=== PATIENT | male | born 1980 | race Caucasian/White ===

== ENCOUNTER 2022-01-06 09:19 | Inpatient (IN) | payer OTHER ==
[2022-01-06] VITALS (15 sets, daily range): BP systolic 140–174; BP diastolic 76–104
[~2022-01-06] VITALS: Ht 185.4 cm; Wt 131.8 kg
[2022-01-06] MEDS ORDERED: MIDAZOLAM HCL/PF 2 MG/2 ML VIAL. ONE ×2 (09:21→09:32)
[2022-01-06] MEDS ORDERED: HEPARIN for IV BOLUS 10,000 UNIT/10 ML VIAL. ONE (09:21)
[2022-01-06] MEDS ORDERED: fentaNYL PF VIAL 100 MCG/2 ML VIAL ONE ×2 (09:21→09:32)
[2022-01-06] MEDS ORDERED: VERAPAMIL 5 MG/2 ML VIAL. ONE (09:21)
[2022-01-06] MEDS ORDERED: NITROGLYCERIN 200 MCG/2 ML SYRINGE FOR CATH/VASC LAB. ONE (09:21)
[2022-01-06] MEDS ORDERED: ONDANSETRON PF 4 MG/2 ML VIAL. ONE (09:23)
[2022-01-06] MEDS ORDERED: TIROFIBAN 12.5MG -0.9% NS 250 ML IV ONE (09:32)
[2022-01-06] MEDS ORDERED: ATROPINE 1 MG/10 ML DISP.SYRINGE. ONE (09:35)
[2022-01-06] MEDS ORDERED: IODIXANOL 320 MG/ML 100 ML VIAL. ONE (09:40)
[2022-01-06] MEDS ORDERED: PRASUGREL 10 MG TABLET. ONE (09:53)
[2022-01-06] MEDS ORDERED: TIROFIBAN 12.5MG -0.9% NS 250 ML IV PRN (10:00)
[2022-01-06] MEDS ORDERED: VERAPAMIL 5 MG/2 ML VIAL. IART ONE (10:00)
[2022-01-06] MEDS ORDERED: MIDAZOLAM HCL/PF 2 MG/2 ML VIAL. IV ONE (10:00)
[2022-01-06] MEDS ORDERED: fentaNYL PF VIAL 100 MCG/2 ML VIAL IV ONE (10:00)
[2022-01-06] MEDS ORDERED: HEPARIN for IV BOLUS 10,000 UNIT/10 ML VIAL. IV ONE (10:00)
[2022-01-06] MEDS ORDERED: NITROGLYCERIN 200 MCG/2 ML SYRINGE FOR CATH/VASC LAB. ICAR ONE (10:00)
[2022-01-06] MEDS ORDERED: NITROGLYCERIN 200 MCG/2 ML SYRINGE FOR CATH/VASC LAB. IART ONE (10:00)
[2022-01-06] MEDS ORDERED: IODIXANOL 320 MG/ML 100 ML VIAL. IART ONE (10:00)
[2022-01-06] MEDS ORDERED: LIDOCAINE 1% Multi-Dose 20 ML VIAL. INJ ONE (10:00)
[2022-01-06] MEDS ORDERED: PRASUGREL 10 MG TABLET. PO ONE (10:00)
[2022-01-06] MEDS ORDERED: HEPARIN for IV BOLUS 10,000 UNIT/10 ML VIAL. IART ONE (10:00)
--- NOTE | 2022-01-06 10:13 | CONS ---
DATE OF CONSULTATION: 01/06/2022 REASON FOR CONSULTATION: Acute inferior STEMI. HISTORY OF PRESENT ILLNESS: The patient is a 41-year-old male who presents to the hospital at [facility] with excruciating chest pain that started suddenly earlier this morning. Initial EKG demonstrated inferior ST elevation. He was emergently transferred to [facility] catheterization laboratory. The patient currently denies any dyspnea, but does have significant chest pain and left arm pain. After discussion of risks and benefits verbally, the patient was brought to the catheterization table. PAST MEDICAL HISTORY: None. 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 He denies any excessive alcohol use. He does smoke regularly. He occasionally uses marijuana. No other illicit drug use. REVIEW OF SYSTEMS: Negative for 10 out of 14 systems reviewed, unless otherwise mentioned above in HPI. FAMILY HISTORY: Noncontributory at this time. ALLERGIES: No known drug allergies. CURRENT CARDIOVASCULAR MEDICATIONS: None. PHYSICAL EXAMINATION: VITAL SIGNS: Afebrile, heart rate 57, blood pressure 173/91, pulse ox 97% on room air. GENERAL: He is alert and oriented, in no acute distress. HEAD AND NECK: Unremarkable. CARDIAC: Regular rhythm without murmurs, rubs or gallops. LUNGS: Clear to auscultation bilaterally. ABDOMEN: Obese, protuberant, nontender. EXTREMITIES: No clubbing, cyanosis, or edema with 2+ pulses. NEUROLOGIC: No focal deficits. MUSCULOSKELETAL: No trauma. DIAGNOSTIC STUDIES: Initial EKG demonstrates [address] elevations with reciprocal inferolateral changes. Laboratory studies are pending. Cardiac catheterization demonstrates subtotal occlusion of the right coronary artery and he underwent successful PCI with a 4.5 x 26 mm Resolute drug-eluting stent. IMPRESSION: 1. Inferior ST elevation myocardial infarction. 2. Tobacco abuse. RECOMMENDATIONS: At this present time, continue aspirin, prasugrel, and tirofiban. We will plan for monitoring in the ICU over the next 24-48 hours. Thank you for this consultation. CCT > 30 minutes exclusive of procedures. DAVID DR: Sepideh TID: [id number] EFRA
[2022-01-06] MEDS ORDERED: ONDANSETRON PF 4 MG/2 ML VIAL. IVP ONE (10:15)
[2022-01-06] MEDS ORDERED: CONTRAST GIVEN. MC PRN (10:30)
[2022-01-06] MEDS ORDERED: MORPHINE SULFATE 2 MG/ML INJ. IVP PRN (11:45)
[2022-01-06] MEDS ORDERED: ONDANSETRON PF 4 MG/2 ML VIAL. IVP PRN (11:45)
[2022-01-06] MEDS ORDERED: ZOLPIDEM 5 MG TABLET. PO PRN (11:45)
[2022-01-06] MEDS ORDERED: PROCHLORPERAZINE 10 MG/2 ML VIAL. IV PRN (11:45)
[2022-01-06] MEDS ORDERED: ACETAMINOPHEN 325 MG TABLET. PO PRN (11:45)
[2022-01-06] MEDS ORDERED: DOCUSATE SODIUM 100 MG CAPSULE. PO PRN (11:45)
[2022-01-06] MEDS ORDERED: oxyCODONE/APAP 5/325 1 TAB TABLET PO PRN (11:45)
[2022-01-06] MEDS ORDERED: diphenhydrAMINE 50 MG/ML VIAL IVP PRN (11:45)
[2022-01-06] MEDS ORDERED: LORazepam 0.5 MG TABLET PO PRN (11:45)
[2022-01-06] MEDS ORDERED: diphenhydrAMINE HCL 25 MG CAPSULE PO PRN ×2 (11:45)
[2022-01-06] MEDS ORDERED: SENNOSIDES 8.6 MG TABLET PO PRN (11:45)
[2022-01-06] MEDS ORDERED: MORPHINE SULFATE 2 MG/ML INJ. IV PRN (11:45)
[2022-01-06] MEDS ORDERED: DEXTROSE 50% 25 GM / 50ML DISP.SYRIN. IV PRN (11:45)
--- NOTE | 2022-01-06 11:54 | PDOC1 ---
History and Physical Date of Service: DOS: DATE: 01/06/22 TIME: 11:48 Chief Complaint: Chief Complain: Chest pain History of Present Illness: HPI: 41-year-old male with past medical history of tobacco use, hypertension comes in with chest pain that started 1 hour ago while he was driving. Patient states that last night tingling started in his left arm and also some tingling in his legs. Endorses lightheadedness and diaphoresis and some nausea. Patient does have a family history of [place] in his father. Patient does smoke 1-1/2 to 2 packs/day. Denies any alcohol or drugs. Denies fevers, abdominal pain, hematuria, bloody stools or syncope or palpitations. STEMI activation at [facility] showed sinus rhythm, heart rate [address] elevation Past Medical/Surgical History: PMH/PSH: Hypertension, GERD Allergies: Allergies: Coded Allergies: No Known Drug Allergies (Unverified , 01/06/22) Family History: Family History: [place] in the father Social History: Social History: Heavy smoker Current Medications: Current Medications Current Medications Fentanyl Citrate (Fentanyl 2ml Vial) 100 mcg STK-MED ONCE .ROUTE ; Start 01/06/22 at 09:21; Stop 01/06/22 at 09:21; Status DC Midazolam HCl (Versed) 2 mg STK-MED ONCE .ROUTE ; Start 01/06/22 at 09:21; Stop 01/06/22 at 09:21; Status DC Heparin Sodium (Porcine) (Heparin Sodium) 10,000 unit STK-MED ONCE .ROUTE ; Start 01/06/22 at 09:21; Stop 01/06/22 at 09:21; Status DC Verapamil HCl (Verapamil) 5 mg STK-MED ONCE .ROUTE ; Start 01/06/22 at 09:21; Stop 01/06/22 at 09:22; Status DC Nitroglycerin (Nitroglycerin) 200 mcg STK-MED ONCE .ROUTE ; Start 01/06/22 at 09:21; Stop 01/06/22 at 09:22; Status DC Ondansetron HCl (Zofran) 4 mg STK-MED ONCE .ROUTE ; Start 01/06/22 at 09:23; Stop 01/06/22 at 09:23; Status DC Fentanyl Citrate (Fentanyl 2ml Vial) 100 mcg STK-MED ONCE .ROUTE ; Start 01/06/22 at 09:32; Stop 01/06/22 at 09:33; Status DC Midazolam HCl (Versed) 2 mg STK-MED ONCE .ROUTE ; Start 01/06/22 at 09:32; Stop 01/06/22 at 09:33; Status DC Tirofiban/Sodium Chloride 250 ml @ As Directed STK-MED ONCE IV ; Start 01/06/22 at 09:32; Stop 01/06/22 at 09:33; Status DC Atropine Sulfate (ATROPINE 1mg SYRINGE) 1 mg STK-MED ONCE .ROUTE ; Start 01/06/22 at 09:35; Stop 01/06/22 at 09:36; Status DC Iodixanol (Visipaque 320) 100 ml STK-MED ONCE .ROUTE ; Start 01/06/22 at 09:40; Stop 01/06/22 at 09:41; Status DC Prasugrel (Effient) 10 mg STK-MED ONCE .ROUTE ; Start 01/06/22 at 09:53; Stop 01/06/22 at 09:54; Status DC Nitroglycerin (Nitroglycerin) 200 mcg 1X ONCE IART Last administered on 01/06/22at 10:13; Start 01/06/22 at 10:00; Stop 01/06/22 at 10:26; Status DC Verapamil HCl (Verapamil) 2.5 mg 1X ONCE IART Last administered on 01/06/22at 10:00; Start 01/06/22 at 10:00; Stop 01/06/22 at 10:26; Status DC Heparin Sodium (Porcine) (Heparin Sodium) 2,500 unit 1X ONCE IART Last administered on 01/06/22at 10:15; Start 01/06/22 at 10:00; Stop 01/06/22 at 10:26; Status DC Heparin Sodium/ Sodium Chloride (HEPARIN for ARTERIAL LINE FLUSH) 1,000 unit 1X ONCE IART Last administered on 01/06/22at 10:19; Start 01/06/22 at 10:00; Stop 01/06/22 at 10:26; Status DC Heparin Sodium/ Sodium Chloride (HEPARIN for ARTERIAL LINE FLUSH) 1,000 unit 1X ONCE IART Last administered on 01/06/22at 10:19; Start 01/06/22 at 10:00; Stop 01/06/22 at 10:26; Status DC Midazolam HCl (Versed) 2 mg 1X ONCE IV Last administered on 01/06/22at 10:13; Start 01/06/22 at 10:00; Stop 01/06/22 at 10:26; Status DC Fentanyl Citrate (Fentanyl 2ml Vial) 100 mcg 1X ONCE IV Last administered on 01/06/22at 10:14; Start 01/06/22 at 10:00; Stop 01/06/22 at 10:26; Status DC Iodixanol (Visipaque 320) 82 ml 1X ONCE IART Last administered on 01/06/22at 10:12; Start 01/06/22 at 10:00; Stop 01/06/22 at 10:26; Status DC Prasugrel (Effient) 60 mg 1X ONCE PO Last administered on 01/06/22 10:18; Start 01/06/22 at 10:00; Stop 01/06/22 at 10:31; Status DC Heparin Sodium (Porcine) (Heparin Sodium) 2,000 unit 1X ONCE IV Last administered on 01/06/22at 10:18; Start 01/06/22 at 10:00; Stop 01/06/22 at 10:31; Status DC Lidocaine HCl (Lidocaine 1% 20ml Vial) 2 ml 1X ONCE INJ Last administered on 01/06/22at 10:19; Start 01/06/22 at 10:00; Stop 01/06/22 at 10:31; Status DC Tirofiban/Sodium Chloride 250 ml @ 0 mls/hr CONT PRN IV PER PROTOCOL Last a dministered on 01/06/22at 09:41; Start 01/06/22 at 10:00; Stop 01/07/22 at 03:59 Nitroglycerin (Nitroglycerin) 200 mcg 1X ONCE ICAR Last administered on 01/06/22at 10:13; Start 01/06/22 at 10:00; Stop 01/06/22 at 10:31; Status DC Ondansetron HCl (Zofran) 8 mg 1X ONCE IVP Last administered on 01/06/22at 10:13; Start 01/06/22 at 10:15; Stop 01/06/22 at 10:31; Status DC Info (CONTRAST GIVEN -- Rx MONITORING) 1 each PRN DAILY PRN MC SEE COMMENTS; Start 4/16/22 at 10:30; Stop 01/08/22 at 10:29 ROS: Review of Systems Review of System REVIEW OF SYSTEMS: GENERAL: Denies weakness SKIN: No bruising, hair changes or rashes. EYES: No blurred, double or loss of vision. NOSE AND THROAT: No history of nosebleeds, hoarseness or sore throat. HEART: Positive for chest pain LUNGS: Denies cough, hemoptysis, wheezing or shortness of breath. GASTROINTESTINAL: Denies changes in appetite, nausea, vomiting, diarrhea or constipation. GENITOURINARY: No history of frequency, urgency, hesitancy or nocturia. NEUROLOGIC: Denies history of numbness, tingling, or tremor. PSYCHIATRIC: No history of panic, anxiety or depression. ENDOCRINE: No history of heat or cold intolerance, polyuria or polydipsia. EXTREMITIES: Denies joint pain, pain on walking or stiffness. Physical Exam: Vital Signs: Vital Signs Date Time Temp Pulse Resp B/P (MAP) Pulse Ox O2 Delivery O2 Flow Rate FiO2 01/06/22 10:23 63 8 99 Nasal Cannula Physcial Exam: General: Well developed, well nourished, no acute distress, well appearing HEENT: Pupils equally round and reactive to light, EOMI, no discharge, normal conjunctiva Neck: Supple, no nuchal rigidity, no JVD, trachea midline, no tenderness Cardiac: RRR, no murmurs, no gallops, no rubs Chest/Lungs: CTAB, no wheeze, no rhonchi, no crackles Abdomen: soft, non-distended, no guarding, no peritoneal signs, non-tender Back: No tenderness Extremities: no edema, pulses intact, non-tender,capillary refill <3 sec bilateral upper and lower extremities. Cath site on right arm clear dry and intact Neuro: Alert and oriented x 4, no focal deficits, normal speech Labs: Labs: Labs at [facility] significant for sodium 143, potassium 4.0, BUN 17, creatinine 1.1, troponin 58 Images: Images No recent images to review Assessment/Plan Assessment/Plan Chest pain due to STEMI status post LHC with RCA stent History of hypertension History of tobacco use EKG showing inferior ST elevations Troponin 58 Cardiology consulted for left heart cath Continue nitroglycerin as needed for pain Continue beta-jai if blood pressures allow Continue high intensity statins IV morphine as needed Pending lipid panel Maintain O2 sats between 88 to 95% Trend troponins Repeat EKG in the a.m. Continue telemetry monitoring Monitor for electrolyte abnormalities Avoid NSAIDs A total of 40 minutes of critical care time was spent in reviewing chart, labs, and images. Discussed with RN and SW. Justifications for Admission Other Justification STEMI JONY ZIEGLER MD Jan 06, 2022 11:54
[2022-01-06] MEDS: ENOXAPARIN 40 MG/0.4 ML SYRINGE. SQ SCH (12:00)
[2022-01-06] MEDS: oxyCODONE/APAP 5/325 1 TAB TABLET PO PRN ×2 (12:03→19:45)
--- NOTE | 2022-01-06 19:40 | NUR ---
Dr. Marte contacted this evening and alerted of patient hypertension SBP 170/180s. Orders given for PRN medications and to alert cardiology if BP uncontrolled.
[2022-01-06] MEDS ORDERED: LABETALOL 20 MG/4 ML DISP.SYRIN. IVP PRN (19:45)
[2022-01-06] MEDS ORDERED: hydrALAZINE 20 MG/ML VIAL. IVP PRN (19:45)
[2022-01-07] VITALS (19 sets, daily range): BP systolic 123–161; BP diastolic 68–100
[2022-01-07] MEDS: oxyCODONE/APAP 5/325 1 TAB TABLET PO PRN (01:45)
[2022-01-07 04:44] LABS: BASO # 0.1 x10^3/uL (0.0-0.2); BASO % 1 % (0-3); EOS # 0.2 x10^3/uL (0.0-0.7); EOS % 3 % (0-3); HEMATOCRIT 46.4 % (39.0-53.0); HEMOGLOBIN 15.6 g/dL (13.0-17.5); LYMPH # 1.7 x10^3/uL (1.0-4.8); LYMPH % 24 % (24-48); MEAN CORPUSCULAR HEMOGLOBIN 32 pg (25-35); MEAN CORPUSCULAR HGB CONC 34 g/dL (31-37); MEAN CORPUSCULAR VOLUME 94 fL (79-100); MONO # 0.6 x10^3/uL (0.0-1.1); MONO % 9 % (0-9); NEUT # 4.5 x10^3/uL (1.8-7.7); NEUT % 63 % (31-73); PLATELET COUNT 238 x10^3/uL (140-400); RED BLOOD COUNT 4.94 x10^6/uL (4.30-5.70); RED CELL DISTRIBUTION WIDTH 13.4 % (11.5-14.5); WHITE BLOOD COUNT 7.2 x10^3/uL (4.0-11.0)
[2022-01-07 05:22] LABS: CALCIUM 8.7 mg/dL (8.5-10.1); CREATININE 0.9 mg/dL (0.7-1.3); GFR 93.5; MAGNESIUM 2.1 mg/dL (1.8-2.4); POTASSIUM 3.5 mmol/L (3.5-5.1)
[2022-01-07 05:32] LABS: CHOLESTEROL/HDL RATIO 6.4
[2022-01-07] MEDS ORDERED: ASPIRIN ENTERIC COATED 81 MG TABLET.DR. PO SCH (08:00)
--- NOTE | 2022-01-07 08:52 | PDOC ---
[employer] PROGRESS NOTE Date of Service DOS: DATE: 01/07/22 TIME: 08:48 Chief Complaint Chief Complaint Chest pain due to STEMI status post [facility] with RCA stent History of hypertension History of tobacco use History of Present Illness History of Present Illness 01/07: Patient seen and evaluated in ICU. He will underwent PCI with stent to right coronary artery yesterday. Denies chest pain will add high intensity statin. Continue monitoring in ICU. Vitals/I&O Vitals/I&O: Vital Signs Date Time Temp Pulse Resp B/P (MAP) Pulse Ox O2 Delivery O2 Flow Rate FiO2 01/07/22 07:00 56 152/87 (108) 95 Room Air 01/07/22 05:00 98.1 18 98.1 I & O 01/06/22 01/06/22 01/07/22 15:00 23:00 07:00 Intake Total 0 ml 493 ml 480 ml Output Total 1 ml 3 ml 1 ml Balance -1 ml 490 ml 479 ml Physical Exam General: Alert, Oriented X3, Cooperative, No acute distress Heart: Regular rate Lungs: Clear Abdomen: Soft Extremities: No clubbing, No cyanosis Skin: No rashes, No breakdown Labs Labs: Laboratory Tests Test 01/07/22 04:00 White Blood Count 7.2 x10^3/uL (4.0-11.0) Red Blood Count 4.94 x10^6/uL (4.30-5.70) Hemoglobin 15.6 g/dL (13.0-17.5) Hematocrit 46.4 % (39.0-53.0) Mean Corpuscular Volume 94 fL (79-100) Mean Corpuscular Hemoglobin 32 pg (25-35) Mean Corpuscular Hemoglobin Concent 34 g/dL (31-37) Red Cell Distribution Width 13.4 % (11.5-14.5) Platelet Count 238 x10^3/uL (140-400) Neutrophils (%) (Auto) 63 % (31-73) Lymphocytes (%) (Auto) 24 % (24-48) Monocytes (%) (Auto) 9 % (0-9) Eosinophils (%) (Auto) 3 % (0-3) Basophils (%) (Auto) 1 % (0-3) Neutrophils # (Auto) 4.5 x10^3/uL (1.8-7.7) Lymphocytes # (Auto) 1.7 x10^3/uL (1.0-4.8) Monocytes # (Auto) 0.6 x10^3/uL (0.0-1.1) Eosinophils # (Auto) 0.2 x10^3/uL (0.0-0.7) Basophils # (Auto) 0.1 x10^3/uL (0.0-0.2) Sodium Level 138 mmol/L (136-145) Potassium Level 3.5 mmol/L (3.5-5.1) Chloride Level 103 mmol/L (98-107) Carbon Dioxide Level 25 mmol/L (21-32) Anion Gap 10 (6-14) Blood Urea Nitrogen 12 mg/dL (8-26) Creatinine 0.9 mg/dL (0.7-1.3) Estimated GFR (Cockcroft-Gault) 93.5 Glucose Level 103 mg/dL (70-99) Calcium Level 8.7 mg/dL (8.5-10.1) Phosphorus Level 3.0 mg/dL (2.6-4.7) Magnesium Level 2.1 mg/dL (1.8-2.4) Triglycerides Level 118 mg/dL (0-150) Cholesterol Level 244 mg/dL (0-200) LDL Cholesterol, Calculated 182 mg/dL (0-100) VLDL Cholesterol, Calculated 24 mg/dL (0-40) Non-HDL Cholesterol Calculated 206 mg/dL (0-129) HDL Cholesterol 38 mg/dL (40-60) Cholesterol/HDL Ratio 6.4 Comment Review of Relevant I have reviewed the following items reji (where applicable) has been applied. Medications: Current Medications Medications (Trade) Dose Ordered Sig/James Route PRN Reason Start Time Stop Time Status Last Admin Dose Admin Nitroglycerin (Nitroglycerin) 200 mcg 1X ONCE IART 01/06/22 10:00 01/06/22 10:26 DC 01/06/22 10:13 Verapamil HCl (Verapamil) 2.5 mg 1X ONCE IART 01/06/22 10:00 01/06/22 10:26 DC 01/06/22 10:00 Heparin Sodium (Porcine) (Heparin Sodium) 2,500 unit 1X ONCE IART 01/06/22 10:00 01/06/22 10:26 DC 01/06/22 10:15 Heparin Sodium/ Sodium Chloride (HEPARIN for ARTERIAL LINE FLUSH) 1,000 unit 1X ONCE IART 01/06/22 10:00 01/06/22 10:26 DC 01/06/22 10:19 Heparin Sodium/ Sodium Chloride (HEPARIN for ARTERIAL LINE FLUSH) 1,000 unit 1X ONCE IART 01/06/22 10:00 01/06/22 10:26 DC 01/06/22 10:19 Midazolam HCl (Versed) 2 mg 1X ONCE IV 01/06/22 10:00 01/06/22 10:26 DC 01/06/22 10:13 Fentanyl Citrate (Fentanyl 2ml Vial) 100 mcg 1X ONCE IV 01/06/22 10:00 01/06/22 10:26 DC 01/06/22 10:14 Iodixanol (Visipaque 320) 82 ml 1X ONCE IART 01/06/22 10:00 01/06/22 10:26 DC 01/06/22 10:12 Prasugrel (Effient) 60 mg 1X ONCE PO 01/06/22 10:00 01/06/22 10:31 DC 01/06/22 10:18 Heparin Sodium (Porcine) (Heparin Sodium) 2,000 unit 1X ONCE IV 01/06/22 10:00 01/06/22 10:31 DC 01/06/22 10:18 Lidocaine HCl (Lidocaine 1% 20ml Vial) 2 ml 1X ONCE INJ 01/06/22 10:00 01/06/22 10:31 DC 01/06/22 10:19 Tirofiban/Sodium Chloride 250 ml @ 0 mls/hr CONT PRN IV PER PROTOCOL 01/06/22 10:00 01/07/22 03:59 DC 01/06/22 09:41 Nitroglycerin (Nitroglycerin) 200 mcg 1X ONCE ICAR 01/06/22 10:00 01/06/22 10:31 DC 01/06/22 10:13 Ondansetron HCl (Zofran) 8 mg 1X ONCE IVP 01/06/22 10:15 01/06/22 10:31 DC 01/06/22 10:13 Oxycodone/ Acetaminophen (Percocet 5/325) 1 tab PRN Q4HRS PRN PO MILD PAIN, 1ST CHOICE 01/06/22 11:45 01/07/22 01:45 Justifications for Admission Other Justification STEMI NATALIE POWELL MD Jan 07, 2022 08:52
--- NOTE | 2022-01-07 11:14 | PDOC ---
CARDIOLOGY PROGRESS NOTE SUBJECTIVE: No acute events overnight. Denies any chest pain. Still has some intermittent right arm pain. No other issues. OBJECTIVE: Vital Signs/I&O: Vital Signs Date Time Temp Pulse Resp B/P (MAP) Pulse Ox O2 Delivery O2 Flow Rate FiO2 01/07/22 10:00 70 154/76 (102) 94 Room Air 01/07/22 08:00 98.5 98.5 01/07/22 05:00 18 I & O 01/06/22 01/06/22 01/07/22 15:00 23:00 07:00 Intake Total 0 ml 493 ml 480 ml Output Total 1 ml 3 ml 1 ml Balance -1 ml 490 ml 479 ml Objective: GEN.: No apparent distress. Alert and oriented. HEENT: Head is normocephalic, atraumatic NECK: Supple. LUNGS: Clear to auscultation. HEART: RRR, S1, S2 present. Peripheral pulses intact ABDOMEN: Soft, nontender. Positive bowel sounds. EXTREMITIES: Without any cyanosis. NEUROLOGIC: Normal speech, normal tone PSYCHIATRIC: Normal affect, normal mood. SKIN: No ulcerations CURRENT MEDICATIONS: Current Medications Medications (Trade) Dose Ordered Sig/James Route PRN Reason Start Time Stop Time Status Last Admin Dose Admin Aspirin (Ecotrin) 325 mg DAILYWBKFT PO 01/07/22 08:00 01/07/22 11:10 DC 01/07/22 09:03 Oxycodone/ Acetaminophen (Percocet 5/325) 1 tab PRN Q4HRS PRN PO MILD PAIN, 1ST CHOICE 01/06/22 11:45 01/07/22 01:45 DIAGNOSTIC TESTING: Labs reviewed. Labs: Laboratory Tests 01/07/22 04:00 Laboratory Tests Test 01/07/22 04:00 White Blood Count 7.2 x10^3/uL (4.0-11.0) Red Blood Count 4.94 x10^6/uL (4.30-5.70) Hemoglobin 15.6 g/dL (13.0-17.5) Hematocrit 46.4 % (39.0-53.0) Mean Corpuscular Volume 94 fL (79-100) Mean Corpuscular Hemoglobin 32 pg (25-35) Mean Corpuscular Hemoglobin Concent 34 g/dL (31-37) Red Cell Distribution Width 13.4 % (11.5-14.5) Platelet Count 238 x10^3/uL (140-400) Neutrophils (%) (Auto) 63 % (31-73) Lymphocytes (%) (Auto) 24 % (24-48) Monocytes (%) (Auto) 9 % (0-9) Eosinophils (%) (Auto) 3 % (0-3) Basophils (%) (Auto) 1 % (0-3) Neutrophils # (Auto) 4.5 x10^3/uL (1.8-7.7) Lymphocytes # (Auto) 1.7 x10^3/uL (1.0-4.8) Monocytes # (Auto) 0.6 x10^3/uL (0.0-1.1) Eosinophils # (Auto) 0.2 x10^3/uL (0.0-0.7) Basophils # (Auto) 0.1 x10^3/uL (0.0-0.2) Sodium Level 138 mmol/L (136-145) Potassium Level 3.5 mmol/L (3.5-5.1) Chloride Level 103 mmol/L (98-107) Carbon Dioxide Level 25 mmol/L (21-32) Anion Gap 10 (6-14) Blood Urea Nitrogen 12 mg/dL (8-26) Creatinine 0.9 mg/dL (0.7-1.3) Estimated GFR (Cockcroft-Gault) 93.5 Glucose Level 103 mg/dL (70-99) H Calcium Level 8.7 mg/dL (8.5-10.1) Phosphorus Level 3.0 mg/dL (2.6-4.7) Cholesterol Level 244 mg/dL (0-200) H LDL Cholesterol, Calculated 182 mg/dL (0-100) H VLDL Cholesterol, Calculated 24 mg/dL (0-40) Non-HDL Cholesterol Calculated 206 mg/dL (0-129) H Cholesterol/HDL Ratio 6.4 ASSESSMENT: 1. STEMI 2. HTN 3. Dyslipidemia PLAN: 1. Continue asa 81mg daily, Prasugrel 10mg daily, Atorvastatin 40mg daily 2. Start lisinopril 10mg daily 3. Check echo and trop. Repeat EKG today. Supportive care. Ok to transfer to floor. Probable dc tomorrow after echo. Thanks Justicifation of Admission Dx: Justifications for Admission: Justification of Admission Dx: N/A JOSHUA ALCAZAR MD Jan 07, 2022 11:14
[2022-01-07] MEDS: PRASUGREL 10 MG TABLET. PO SCH (11:29)
[2022-01-07] MEDS ORDERED: LISINOPRIL 10 MG TABLET PO ONE (11:30)
--- NOTE | 2022-01-07 11:40 | EKG ---
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
[2022-01-07] MEDS: ENOXAPARIN 40 MG/0.4 ML SYRINGE. SQ SCH (12:14)
--- NOTE | 2022-01-07 15:57 | CARD ---
MR#: [id number] Date of Study: 01/06/2022 Ordering Physician: JOSHUA MAXWELL, Referring Physician: JOSHUA MAXWELL, Tech: Tracy Osborne RTR APPROVED REPORT Technologist: Tracy Osborne RTR Nurse: Magaly Ortega RN Procedure(s) performed: fluoro time: 7.2min dose: 990 gycm2 contrast: 82cc visi mod sedation: 52MIN LHC, Coronary angiography PCI of the RCA for Acute PA INDICATION The indication(s) include : STEMI . [facility] Clinical Frailty Scale [facility] Clinical Frailty Scale: Managing Well Heart Failure Heart Failure: Yes If Yes, Newly Diagnosed: Yes If Yes, HF Type: Diastolic If Yes, NYHA Class: Class II CASE TECHNIQUE IV conscious sedation was used throughout procedure with appropriate monitoring and was performed in the presence of a registered nurse who was an independent trained observer other than the physician p erforming the procedure. During this case, Fluoroscopy and Iso-osmolar contrast were used for imaging . Specimen(s) Removed: N/A Estimated Blood loss: 15 cc's. PROCEDURE NARRATIVE Clinical information: 41-year-old male presented to the hospital in the setting of acute chest pain with inferior ST elevat ions and the patient was taken emergently to the catheterization laboratory for further evaluation an d treatment. Procedure details: The right wrist was prepped and draped in usual sterile fashion. Under 1% lidocaine local anesthesia a 6 Kazakh sheath was placed in the right radial artery. Diagnostic angiography was then performed with a 6 Kazakh TIG catheter and a JR4 guide catheter. Left ventricular end-diastolic pressure was o btained with a JR4 catheter and a pullback was performed. Findings: Aorta 140/80 LVEDP 16 mmHg No LV to aortic pullback gradient Coronary angiography: Left main is a large-caliber vessel with normal angiographic appearance LAD is a large-caliber vessel with mild luminal irregularities D1 and D2 are small caliber vessels with mild luminal irregularities Ramus is a small to moderate caliber vessel with mild luminal irregularities Left circumflex is a small to moderate caliber vessel with mild luminal irregularities OM1 is a small caliber vessel with a proximal 80% stenosis RCA is a large-caliber dominant vessel with a mid 95% stenosis RPDA and RPL are moderate caliber vessels with mild luminal irregularities Interventional technique: Heparin and tirofiban were used for anticoagulation. Through a 6 Kazakh JR4 guide catheter a Prowate r wire was placed in the distal RPL. Balloon angioplasty was then performed with a 4.0 x 12 mm ballo on and the lesion was stented with a 4.5 x 26 mm resolute drug-eluting stent. Final angiography demo nstrated excellent stent expansion with KATLYN-3 flow in the vessel no evidence of guidewire related co mplications. At case completion catheters and sheaths were removed and hemostasis was achieved via a Terumo radial band. The patient received 60 mg of prasugrel. No acute complications. KATLYN Flow KATLYN Flow (Pre-Intervention): KATLYN-1 KATLYN Flow (Post-Intervention): KATLYN-[address] Conclusion [address] Acute inferior ST elevation PA 2. Acute diastolic heart failure with an EDP of 16 mmHg 3. Two-vessel coronary artery disease with the culprit lesion being in the RCA 4. Successful PCI of the mid RCA with implantation of 4.5 x 26 mm resolute drug-eluting stent. Recommendations Aspirin 81 mg daily Prasugrel 10 mg daily for 1 full year Cardiac rehabilitation referral High-dose statin therapy. Signed by : Joshua Maxwell, Electronically Approved : 01/07/2022 15:57:26
[2022-01-07] MEDS ORDERED: ATORVASTATIN CALCIUM 40 MG TABLET. PO SCH (21:00)
[2022-01-08 03:51] VITALS: BP 121/73
[2022-01-08 05:07] LABS: BASO % 1 % (0-3); EOS # 0.2 x10^3/uL (0.0-0.7); EOS % 3 % (0-3); HEMATOCRIT 47.3 % (39.0-53.0); LYMPH # 1.6 x10^3/uL (1.0-4.8); LYMPH % 24 % (24-48); MEAN CORPUSCULAR HEMOGLOBIN 32 pg (25-35); MEAN CORPUSCULAR HGB CONC 34 g/dL (31-37); MEAN CORPUSCULAR VOLUME 94 fL (79-100); MONO # 0.7 x10^3/uL (0.0-1.1); MONO % 10 % (0-9); NEUT # 4.1 x10^3/uL (1.8-7.7); NEUT % 62 % (31-73); PLATELET COUNT 248 x10^3/uL (140-400); RED BLOOD COUNT 5.04 x10^6/uL (4.30-5.70); RED CELL DISTRIBUTION WIDTH 13.2 % (11.5-14.5); WHITE BLOOD COUNT 6.7 x10^3/uL (4.0-11.0)
[2022-01-08 05:21] LABS: CALCIUM 8.9 mg/dL (8.5-10.1); CREATININE 0.9 mg/dL (0.7-1.3); GFR 93.5; MAGNESIUM 2.1 mg/dL (1.8-2.4); POTASSIUM 3.5 mmol/L (3.5-5.1)
[2022-01-08 07:00] VITALS: BP 135/78
[2022-01-08] MEDS ORDERED: ASPIRIN ENTERIC COATED 81 MG TABLET.DR. PO SCH (08:00)
[2022-01-08] MEDS: PRASUGREL 10 MG TABLET. PO SCH (08:53)
[2022-01-08] MEDS ORDERED: LISINOPRIL 10 MG TABLET PO SCH (09:00)
--- NOTE | 2022-01-08 10:08 | PDOC ---
CHRISTINE CARRASQUILLO MIG WELDER 01/08/22 1008: CARDIO Progress Notes Date and Time Date of Service 01/08/22 Time of Evaluation 1045 Subjective Subjective: No Chest Pain, No shortness of breath, No Palpitations, No Dizziness Vitals Vitals Vital Signs Date Time Temp Pulse Resp B/P (MAP) Pulse Ox O2 Delivery O2 Flow Rate FiO2 01/08/22 08:53 86 135/78 01/08/22 08:00 Room Air 01/08/22 07:00 98.5 16 98 98.5 Weight Weight [ ] Input and Output Intake and Output Intake and Output 01/08/22 07:00 Intake Total 1200 ml Output Total 3 ml Balance 1197 ml Intake Oral 1200 ml Output Urine Total 3 ml Laboratory Labs Laboratory Tests Test 01/08/22 04:35 White Blood Count 6.7 x10^3/uL (4.0-11.0) Red Blood Count 5.04 x10^6/uL (4.30-5.70) Hemoglobin 16.0 g/dL (13.0-17.5) Hematocrit 47.3 % (39.0-53.0) Mean Corpuscular Volume 94 fL (79-100) Mean Corpuscular Hemoglobin 32 pg (25-35) Mean Corpuscular Hemoglobin Concent 34 g/dL (31-37) Red Cell Distribution Width 13.2 % (11.5-14.5) Platelet Count 248 x10^3/uL (140-400) Neutrophils (%) (Auto) 62 % (31-73) Lymphocytes (%) (Auto) 24 % (24-48) Monocytes (%) (Auto) 10 % (0-9) Eosinophils (%) (Auto) 3 % (0-3) Basophils (%) (Auto) 1 % (0-3) Neutrophils # (Auto) 4.1 x10^3/uL (1.8-7.7) Lymphocytes # (Auto) 1.6 x10^3/uL (1.0-4.8) Monocytes # (Auto) 0.7 x10^3/uL (0.0-1.1) Eosinophils # (Auto) 0.2 x10^3/uL (0.0-0.7) Basophils # (Auto) 0.0 x10^3/uL (0.0-0.2) Sodium Level 138 mmol/L (136-145) Potassium Level 3.5 mmol/L (3.5-5.1) Chloride Level 103 mmol/L (98-107) Carbon Dioxide Level 24 mmol/L (21-32) Anion Gap 11 (6-14) Blood Urea Nitrogen 10 mg/dL (8-26) Creatinine 0.9 mg/dL (0.7-1.3) Estimated GFR (Cockcroft-Gault) 93.5 Glucose Level 111 mg/dL (70-99) Calcium Level 8.9 mg/dL (8.5-10.1) Magnesium Level 2.1 mg/dL (1.8-2.4) Physical Exam HEENT: Neck Supple W Full Motion Chest: Symmetric LUNGS: Clear to Auscultation Heart: RRR Abdomen: Soft N/T Extremities: No Edema, Other (right radial arteriotomy site soft, clean, and dry. Bilateral neurovascular status intact. ) Neurology: alert, oriented, follow commands Assessment Assessment 1. STEMI 2. CAD s/p PCI/BO to RCA 3. HTN; controlled 4. Dyslipidemia 5. Tobaccosim; discussed/encouraged cessation Recommendations Echocardiogram today Secondary prevention including DAPT with ASA/Prasugrel and high dose statin No BB with low end HR Risk modification stratification Cardiac rehab referral Follow up in our office with Dr. Maxwell as scheduled Justicifation of Admission Dx: Justifications for Admission: Justification of Admission Dx: N/A JOSHUA MAXWELL MD 01/08/22 8946: CARDIO Progress Notes Plan Plan The patient was seen and interviewed as well as examined at the bedside. The chart was reviewed. The case was discussed. Agree with the plan of care. CHRISTINE CARRASQUILLO APRN Jan 08, 2022 10:08 JOSHUA MAXWELL MD Jan 08, 2022 23:46
[2022-01-08 11:00] VITALS: BP 129/78
--- NOTE | 2022-01-08 11:39 | PDOC ---
[employer] PROGRESS NOTE Date of Service DOS: DATE: 01/08/22 TIME: 11:38 Chief Complaint Chief Complaint Chest pain due to STEMI status post [facility] with RCA stent History of hypertension History of tobacco use History of Present Illness History of Present Illness 01/07: Patient seen and evaluated in ICU. He will underwent PCI with stent to right coronary artery yesterday. Denies chest pain will add high intensity statin. Continue monitoring in ICU. 01/08: Patient seen and evaluated in ICU. He reports improvement in his chest pain. Stable to discharge from cardiology standpoint. Discharged on Effient, aspirin, lisinopril, and atorvastatin. Greater than 30 minutes spent managing the discharge of this patient. Vitals/I&O Vitals/I&O: Vital Signs Date Time Temp Pulse Resp B/P (MAP) Pulse Ox O2 Delivery O2 Flow Rate FiO2 01/08/22 11:00 98.2 72 16 129/78 (95) 98 Room Air 98.2 I & O 01/07/22 01/07/22 01/08/22 15:00 23:00 07:00 Intake Total 0 ml 300 ml 900 ml Output Total 1 ml 1 ml 1 ml Balance -1 ml 299 ml 899 ml Physical Exam General: Alert, Oriented X3, Cooperative, No acute distress Heart: Regular rate Lungs: Clear Abdomen: Soft Extremities: No clubbing, No cyanosis Skin: No rashes, No breakdown Labs Labs: Laboratory Tests Test 01/08/22 04:35 White Blood Count 6.7 x10^3/uL (4.0-11.0) Red Blood Count 5.04 x10^6/uL (4.30-5.70) Hemoglobin 16.0 g/dL (13.0-17.5) Hematocrit 47.3 % (39.0-53.0) Mean Corpuscular Volume 94 fL (79-100) Mean Corpuscular Hemoglobin 32 pg (25-35) Mean Corpuscular Hemoglobin Concent 34 g/dL (31-37) Red Cell Distribution Width 13.2 % (11.5-14.5) Platelet Count 248 x10^3/uL (140-400) Neutrophils (%) (Auto) 62 % (31-73) Lymphocytes (%) (Auto) 24 % (24-48) Monocytes (%) (Auto) 10 % (0-9) Eosinophils (%) (Auto) 3 % (0-3) Basophils (%) (Auto) 1 % (0-3) Neutrophils # (Auto) 4.1 x10^3/uL (1.8-7.7) Lymphocytes # (Auto) 1.6 x10^3/uL (1.0-4.8) Monocytes # (Auto) 0.7 x10^3/uL (0.0-1.1) Eosinophils # (Auto) 0.2 x10^3/uL (0.0-0.7) Basophils # (Auto) 0.0 x10^3/uL (0.0-0.2) Sodium Level 138 mmol/L (136-145) Potassium Level 3.5 mmol/L (3.5-5.1) Chloride Level 103 mmol/L (98-107) Carbon Dioxide Level 24 mmol/L (21-32) Anion Gap 11 (6-14) Blood Urea Nitrogen 10 mg/dL (8-26) Creatinine 0.9 mg/dL (0.7-1.3) Estimated GFR (Cockcroft-Gault) 93.5 Glucose Level 111 mg/dL (70-99) Calcium Level 8.9 mg/dL (8.5-10.1) Magnesium Level 2.1 mg/dL (1.8-2.4) Comment Review of Relevant I have reviewed the following items reji (where applicable) has been applied. Medications: Current Medications Medications (Trade) Dose Ordered Sig/James Route PRN Reason Start Time Stop Time Status Last Admin Dose Admin Atorvastatin Calcium (Lipitor) 40 mg QHS PO 01/07/22 21:00 01/07/22 21:08 Aspirin (Ecotrin) 81 mg DAILYWBKFT PO 01/08/22 08:00 01/08/22 08:53 Lisinopril (Prinivil) 10 mg DAILY PO 01/08/22 09:00 01/08/22 08:53 Justifications for Admission Other Justification STEMI NATALIE POWELL MD Jan 08, 2022 11:39
--- NOTE | 2022-01-08 11:42 | PDOC3 ---
Discharge Summary Visit Information Date of Admission: Jan 06, 2022 Date of Discharge: Jan 08, 2022 Brief Hospital Course Allergies Allergies Coded Allergies Type Severity Reaction Last Updated Verified No Known Drug Allergies 01/06/22 No Vital Signs Vital Signs Date Time Temp Pulse Resp B/P (MAP) Pulse Ox O2 Delivery O2 Flow Rate FiO2 01/08/22 11:00 98.2 72 16 129/78 (95) 98 Room Air 98.2 Lab Results Laboratory Tests Test 01/07/22 04:00 01/08/22 04:35 White Blood Count 7.2 x10^3/uL (4.0-11.0) 6.7 x10^3/uL (4.0-11.0) Red Blood Count 4.94 x10^6/uL (4.30-5.70) 5.04 x10^6/uL (4.30-5.70) Hemoglobin 15.6 g/dL (13.0-17.5) 16.0 g/dL (13.0-17.5) Hematocrit 46.4 % (39.0-53.0) 47.3 % (39.0-53.0) Mean Corpuscular Volume 94 fL (79-100) 94 fL (79-100) Mean Corpuscular Hemoglobin 32 pg (25-35) 32 pg (25-35) Mean Corpuscular Hemoglobin Concent 34 g/dL (31-37) 34 g/dL (31-37) Red Cell Distribution Width 13.4 % (11.5-14.5) 13.2 % (11.5-14.5) Platelet Count 238 x10^3/uL (140-400) 248 x10^3/uL (140-400) Neutrophils (%) (Auto) 63 % (31-73) 62 % (31-73) Lymphocytes (%) (Auto) 24 % (24-48) 24 % (24-48) Monocytes (%) (Auto) 9 % (0-9) 10 % (0-9) Eosinophils (%) (Auto) 3 % (0-3) 3 % (0-3) Basophils (%) (Auto) 1 % (0-3) 1 % (0-3) Neutrophils # (Auto) 4.5 x10^3/uL (1.8-7.7) 4.1 x10^3/uL (1.8-7.7) Lymphocytes # (Auto) 1.7 x10^3/uL (1.0-4.8) 1.6 x10^3/uL (1.0-4.8) Monocytes # (Auto) 0.6 x10^3/uL (0.0-1.1) 0.7 x10^3/uL (0.0-1.1) Eosinophils # (Auto) 0.2 x10^3/uL (0.0-0.7) 0.2 x10^3/uL (0.0-0.7) Basophils # (Auto) 0.1 x10^3/uL (0.0-0.2) 0.0 x10^3/uL (0.0-0.2) Sodium Level 138 mmol/L (136-145) 138 mmol/L (136-145) Potassium Level 3.5 mmol/L (3.5-5.1) 3.5 mmol/L (3.5-5.1) Chloride Level 103 mmol/L (98-107) 103 mmol/L (98-107) Carbon Dioxide Level 25 mmol/L (21-32) 24 mmol/L (21-32) Anion Gap 10 (6-14) 11 (6-14) Blood Urea Nitrogen 12 mg/dL (8-26) 10 mg/dL (8-26) Creatinine 0.9 mg/dL (0.7-1.3) 0.9 mg/dL (0.7-1.3) Estimated GFR (Cockcroft-Gault) 93.5 93.5 Glucose Level 103 mg/dL (70-99) 111 mg/dL (70-99) Calcium Level 8.7 mg/dL (8.5-10.1) 8.9 mg/dL (8.5-10.1) Phosphorus Level 3.0 mg/dL (2.6-4.7) Magnesium Level 2.1 mg/dL (1.8-2.4) 2.1 mg/dL (1.8-2.4) Troponin I High Sensitivity 18185 ng/L (4-75) Triglycerides Level 118 mg/dL (0-150) Cholesterol Level 244 mg/dL (0-200) LDL Cholesterol, Calculated 182 mg/dL (0-100) VLDL Cholesterol, Calculated 24 mg/dL (0-40) Non-HDL Cholesterol Calculated 206 mg/dL (0-129) HDL Cholesterol 38 mg/dL (40-60) Cholesterol/HDL Ratio 6.4 Laboratory Tests Test 01/08/22 04:35 White Blood Count 6.7 x10^3/uL (4.0-11.0) Red Blood Count 5.04 x10^6/uL (4.30-5.70) Hemoglobin 16.0 g/dL (13.0-17.5) Hematocrit 47.3 % (39.0-53.0) Mean Corpuscular Volume 94 fL (79-100) Mean Corpuscular Hemoglobin 32 pg (25-35) Mean Corpuscular Hemoglobin Concent 34 g/dL (31-37) Red Cell Distribution Width 13.2 % (11.5-14.5) Platelet Count 248 x10^3/uL (140-400) Neutrophils (%) (Auto) 62 % (31-73) Lymphocytes (%) (Auto) 24 % (24-48) Monocytes (%) (Auto) 10 % (0-9) Eosinophils (%) (Auto) 3 % (0-3) Basophils (%) (Auto) 1 % (0-3) Neutrophils # (Auto) 4.1 x10^3/uL (1.8-7.7) Lymphocytes # (Auto) 1.6 x10^3/uL (1.0-4.8) Monocytes # (Auto) 0.7 x10^3/uL (0.0-1.1) Eosinophils # (Auto) 0.2 x10^3/uL (0.0-0.7) Basophils # (Auto) 0.0 x10^3/uL (0.0-0.2) Sodium Level 138 mmol/L (136-145) Potassium Level 3.5 mmol/L (3.5-5.1) Chloride Level 103 mmol/L (98-107) Carbon Dioxide Level 24 mmol/L (21-32) Anion Gap 11 (6-14) Blood Urea Nitrogen 10 mg/dL (8-26) Creatinine 0.9 mg/dL (0.7-1.3) Estimated GFR (Cockcroft-Gault) 93.5 Glucose Level 111 mg/dL (70-99) Calcium Level 8.9 mg/dL (8.5-10.1) Magnesium Level 2.1 mg/dL (1.8-2.4) Brief Hospital Course Mr. Bonner is a 41 old male who presented with STEMI. Consultation was placed to cardiology. He underwent PCI with stent to right coronary artery and kept for further monitoring. He was able to discharge home on Effient, aspirin, lisinopril, and atorvastatin. Discharge Information Condition at Discharge: Improved Disposition/Orders: D/C to Home Justicifation of Admission Dx: Justifications for Admission: Justification of Admission Dx: N/A NATALIE POWELL MD Jan 08, 2022 11:42
[2022-01-08] MEDS ORDERED: ATOR40TA59 PO (11:46)
[2022-01-08] MEDS ORDERED: ASPI-886 PO (11:46)
[2022-01-08] MEDS ORDERED: LISI10TA16 PO (11:46)
[2022-01-08] MEDS ORDERED: PRAS10TA9 PO (11:46)
--- NOTE | 2022-01-08 17:37 | CARD ---
MR#: [id number] Date of Study: 01/08/2022 Ordering Physician: JOSHUA ALCAZAR, Referring Physician: JOSHUA ALCAZAR, Tech: Joe Rivers [facility] APPROVED REPORT EXAM: Two-dimensional and M-mode echocardiogram with Doppler and color Doppler. Other Information Quality : FairHR: 71bpm Rhythm : NSR INDICATION STEMI RISK FACTORS Smoking 2D DIMENSIONS Left Atrium(2D)5.3 (1.6-4.0cm)IVSd1.2 (0.7-1.1cm) Aortic Root(2D)3.2 (2.0-3.7cm)LVDd5.1 (3.9-5.9cm) PWd1.2 (0.7-1.1cm)LVDs3.1 (2.5-4.0cm) FS (%) 39.3 %SV83.4 ml Aortic Valve AoV Peak Adam.125.3cm/sAoV VTI22.0cm AO Peak GR.6.3mmHgLVOT VTI 14.67cm AO Mean GR.4mmHg Mitral Valve MV E Nzxwiewy30.3cm/sMV DECEL BKYU957rg MV A Jiuihjmo29.1cm/sE/A Ratio0.8 TDI Lateral E' P. V6.44cm/sMedial E' P. V6.31cm/s E/Lateral E'7.0E/Medial E'7.2 Pulmonary Valve PV Peak Uaybbfkd665.4cm/s Tricuspid Valve TR P. Ranxzkne926jn/sTR Peak Gr.16mmHg Pulmonary Vein S1 Xujipkjr32.1cm/sS2 Pkkydggj68.14cm/s D2 Crurapws82.1cm/s LEFT VENTRICLE The left ventricle is normal size. There is borderline to mild concentric left ventricular hypertroph y. The left ventricular systolic function is normal and the ejection fraction is within normal range. LV ejection fraction is 55 to 60%. There is normal LV segmental wall motion. No left ventricle throm bus noted on this study. There is no ventricular septal defect visualized. There is no left ventricul ar aneurysm. There is no mass noted in the left ventricle. RIGHT VENTRICLE The right ventricle is normal size. There is normal right ventricular wall thickness. The right ventr icular systolic function is normal. ATRIA The left atrium is moderately dilated. The right atrium size is normal. The interatrial septum is int act with no evidence for an atrial septal defect or patent foramen ovale as noted on 2-D or Doppler i maging. AORTIC VALVE The aortic valve is normal in structure and function. Doppler and Color Flow revealed no significant aortic regurgitation. There is no significant aortic valvular stenosis. There is no aortic valvular v egetation. MITRAL VALVE The mitral valve is normal in structure and function. There is no evidence of mitral valve prolapse. There is no mitral valve stenosis. Doppler and Color-flow revealed trace mitral regurgitation. TRICUSPID VALVE The tricuspid valve is normal in structure and function. Doppler and Color Flow revealed trace tricus pid regurgitation. There is no tricuspid valve prolapse or vegetation. There is no tricuspid valve st enosis. PULMONIC VALVE The pulmonic vavle is not well seen. Doppler and Color Flow revealed no pulmonic valvular regurgitati on. There is no pulmonic valvular stenosis. GREAT VESSELS The aortic root is normal in size. The ascending aorta is normal in size. The pulmonary artery is nor mal. The IVC is normal in size and collapses >50% with inspiration. PERICARDIAL EFFUSION There is no pleural effusion. There is no evidence of significant pericardial effusion. Critical Notification Critical Value: No <Conclusion> The left ventricle is normal size. The left ventricular systolic function is normal and the ejection fraction is within normal range. LV ejection fraction is 55 to 60%. There is borderline to mild concentric left ventricular hypertrophy. Doppler and Color Flow revealed no significant aortic regurgitation. There is no significant aortic valvular stenosis. Doppler and Color-flow revealed trace mitral regurgitation. Doppler and Color Flow revealed trace tricuspid regurgitation. Signed by : Fredy Zacarias MD Electronically Approved : 01/08/2022 17:37:01
== END 2022-01-08 12:14 | disposition home or self-care (01) | DRG 246 ==
LOC: 1 WEST ICU 09:19
PROVIDERS: ADMIT Internal Medicine; ATTEND Internal Medicine
PROC: 027034Z Dilation of Coronary Artery, One Artery with Drug-eluting Intraluminal Device, Percutaneous Approach (ICD-10-PCS; principal; 2022-01-06)
PROC: 3E033PZ Introduction of Platelet Inhibitor into Peripheral Vein, Percutaneous Approach (ICD-10-PCS; 2022-01-06)
PROC: 4A023N7 Measurement of Cardiac Sampling and Pressure, Left Heart, Percutaneous Approach (ICD-10-PCS; 2022-01-06)
PROC: B211YZZ Fluoroscopy of Multiple Coronary Arteries using Other Contrast (ICD-10-PCS; 2022-01-06)
DX: I21.19 ST elevation (STEMI) myocardial infarction involving other coronary artery of inferior wall (principal); I50.31 Acute diastolic (congestive) heart failure; E78.5 Hyperlipidemia, unspecified; F12.90 Cannabis use, unspecified, uncomplicated; I25.10 Atherosclerotic heart disease of native coronary artery without angina pectoris; K21.9 Gastro-esophageal reflux disease without esophagitis; Z82.49 Family history of ischemic heart disease and other diseases of the circulatory system; Z95.5 Presence of coronary angioplasty implant and graft; I11.0 Hypertensive heart disease with heart failure; F17.210 Nicotine dependence, cigarettes, uncomplicated
CPT/HCPCS: 36415; 80048; 80061; 83735; 84100; 84484; 85025; 85347; 92941; 93005; 93306; 93458; 99152; 99153; C1725; C1874; C1894; J1644; J1650; J2250; J2405; J3010; J3490; Q9967; C8929; G0378; J3246

== ENCOUNTER 2022-02-05 17:09 | Inpatient (IN) | payer OTHER ==
[~2022-02-05] VITALS: Ht 188 cm; Wt 130.0 kg
[~2022-02-05 17:09] MED LIST: ASPI-886 PO; ATOR40TA59 PO; LISI10TA16 PO; PRAS10TA9 PO
--- NOTE | 2022-02-05 17:23 | PHYS DOC ---
Past Medical History Smoking Status: Current Every Day Smoker General Adult EDM: Chief Complaint: CHEST PAIN HPI: HPI: Patient is a 41 year old male who presents with OK 1 month ago and had a stent placed here by Dr. Maxwell. He states at 9:00 this morning began having a really bad headache that he describes as the worst headache of his life and felt type of a "muscle spasm" type of chest pain that made him nauseated and break out into a sweat. He states he has not had the pain since. States he was out working on a heavy piece of machinery when all this started. He is on Plavix. Denies syncope, dizziness, vision change, numbness or tingling, focal weakness, abdominal pain, diarrhea, fever, back pain, urinary symptoms. Review of Systems: Review of Systems: Constitutional: Denies fever or chills. [] Eyes: Denies change in visual acuity. [] HENT: Denies nasal congestion or sore throat. [] Respiratory: Denies cough or +shortness of breath. [] Cardiovascular: + chest pain or denies edema. [] GI: Denies abdominal pain, +nausea, denies vomiting, bloody stools or diarrhea. [] : Denies dysuria. [] Musculoskeletal: Denies back pain or joint pain. [] Integument: Denies rash. [] Neurologic: + headache, denies focal weakness or sensory changes. [] Endocrine: Denies polyuria or polydipsia. [] Lymphatic: Denies swollen glands. [] Psychiatric: Denies depression or anxiety. [] Heart Score: C/O Chest Pain: Yes HEART Score for Chest Pain: HEART Score for Chest Pain Response (Comments) Value History Moderately Suspicious 1 ECG Nonspecific Repolarizatio 1 Age < 45 0 Risk Factors >3 Risk Factors or Hx CAD 2 Troponin < Normal Limit 0 Total 4 Risk Factors: Risk Factors: DM, Current or recent (<one month) smoker, HTN, HLP, family history of CAD, obesity. Risk Scores: Score 0 - 3: 2.5% MACE over next 6 weeks - Discharge Home Score 4 - 6: 20.3% MACE over next 6 weeks - Admit for Clinical Observation Score 7 - 10: 72.7% MACE over next 6 weeks - Early Invasive Strategies Allergies: Allergies: Allergies Coded Allergies Type Severity Reaction Last Updated Verified No Known Drug Allergies 01/06/22 No Physical Exam: PE: Constitutional: Well developed, well nourished, no acute distress, non-toxic appearance. [] HENT: Normocephalic, atraumatic, bilateral external ears normal, oropharynx moist, no oral exudates, nose normal. [] Eyes: PERRLA, EOMI, conjunctiva normal, no discharge. [] Neck: Normal range of motion, no tenderness, supple, no stridor. [] Cardiovascular:Heart rate regular rhythm, no murmur [] Lungs & Thorax: Bilateral breath sounds clear to auscultation [] Abdomen: Bowel sounds normal, soft, no tenderness, no masses, no pulsatile masses. [] Skin: Warm, dry, no erythema, no rash. [] Back: No tenderness, no CVA tenderness. [] Extremities: No tenderness, no cyanosis, no clubbing, ROM intact, no edema. [] Neurologic: Alert and oriented X 3, normal motor function, normal sensory function, no focal deficits noted. [] Psychologic: Affect normal, judgement normal, mood normal. [] Normal Physical Exam EKG: EK and read by Dr. Carter is a sinus rhythm with J-point elevation in V2 V3 but no change from previous EKG a month ago. Radiology/Procedures: Radiology/Procedures: [] Course & Med Decision Making: Course & Med Decision Making Pertinent Labs and Imaging studies reviewed. (See chart for details) See HPI. Alert and oriented x4. Ambulatory with a steady gait. Speaks in full clear sentences. Skin pink warm and dry. Chest pain is not reproducible with movement or palpation. Does not currently have any chest pain at this time. He did go to his primary care physician at 1600 today who sent him over to the emergency room to be checked out. Currently vital signs are within normal limits. EKG reviewed looks the same as EKG from a month ago. CT of the head came back as no acute findings. Chest xray read show no acute findings. Still awaiting chest x-ray. Patient will be admitted to the hospital due to history and having chest pain. After patient was given compazine, decadron, and benadryl for headache he became very anxious and was standing at side of bed pacing. Although, his headache has now been resolved. I have ordered Ativan. [] Deborahon Disclaimer: Dragon Disclaimer: This electronic medical record was generated, in whole or in part, using a voice recognition dictation system. Departure Departure Impression: Primary Impression: Chest pain Qualified Codes: R07.9 - Chest pain, unspecified Disposition: 09 ADMITTED INPATIENT Admitting Physician: CARI Condition: STABLE Referrals: RAMÓN LIMA MD (PCP) ADEEL BRIZUELA APRN February 05, 2022 17:23
[2022-02-05 17:29] LABS: BASO % 1 % (0-3); EOS % 1 % (0-3); HEMATOCRIT 43.5 % (39.0-53.0); HEMOGLOBIN 15.1 g/dL (13.0-17.5); LYMPH # 0.3 x10^3/uL (1.0-4.8); LYMPH % 8 % (24-48); MEAN CORPUSCULAR HEMOGLOBIN 32 pg (25-35); MEAN CORPUSCULAR HGB CONC 35 g/dL (31-37); MEAN CORPUSCULAR VOLUME 92 fL (79-100); MONO # 0.5 x10^3/uL (0.0-1.1); MONO % 13 % (0-9); NEUT # 2.9 x10^3/uL (1.8-7.7); NEUT % 77 % (31-73); PLATELET COUNT 193 x10^3/uL (140-400); RED BLOOD COUNT 4.72 x10^6/uL (4.30-5.70); RED CELL DISTRIBUTION WIDTH 12.6 % (11.5-14.5); WHITE BLOOD COUNT 3.7 x10^3/uL (4.0-11.0)
[2022-02-05] MEDS ORDERED: fentaNYL PF VIAL 100 MCG/2 ML VIAL IVP ONE (17:30)
[2022-02-05 17:38] LABS: PROTHROMBIN TIME PATIENT 14.6 SEC (11.7-14.0)
[2022-02-05 17:41] LABS: CALCIUM 9.1 mg/dL (8.5-10.1); CREATININE 1.1 mg/dL (0.7-1.3); GFR 74.1; POTASSIUM 4.1 mmol/L (3.5-5.1)
[2022-02-05 17:47] LABS: ALBUMIN 4.3 g/dL (3.4-5.0); ALBUMIN/GLOBULIN RATIO 1.5 (1.0-1.7); TOTAL BILIRUBIN 0.7 mg/dL (0.2-1.0); TOTAL PROTEIN 7.2 g/dL (6.4-8.2)
[2022-02-05] MEDS ORDERED: NITROGLYCERIN SUBLINGUAL 0.4 MG BOTTLE OF 25. SL PRN (18:30)
[2022-02-05] MEDS ORDERED: fentaNYL PF VIAL 100 MCG/2 ML VIAL IVP PRN (18:30)
[2022-02-05] MEDS ORDERED: PROCHLORPERAZINE 10 MG/2 ML VIAL. IV ONE (18:45)
[2022-02-05] MEDS ORDERED: DEXAMETHASONE SOD PHOS 20 MG/5 ML VIAL. IV ONE (18:45)
[2022-02-05] MEDS ORDERED: diphenhydrAMINE 50 MG/ML VIAL IVP ONE (18:45)
[2022-02-05 18:54] LABS: % BANDS 6 % (0-9); % EOS 1 % (0-5); % LYMPHS 5 % (24-48); % MONOS 7 % (0-10); % SEGS 81 % (35-66); PLT ESTIMATE ADEQUATE (ADEQUATE)
[2022-02-05] MEDS ORDERED: FLUO40CA9 PO (20:34)
[2022-02-05] MEDS ORDERED: ESOM20CA PO (20:34)
[2022-02-06 07:00] VITALS: BP 136/74
--- NOTE | 2022-02-06 07:43 | PDOC1 ---
History and Physical Date of Admission Date of Admission DATE: 02/06/22 TIME: 07:41 Identification/Chief Complaint Chief Complaint Chest pain Source Source: Patient History of Present Illness History of Present Illness Mr Bonner is a 41yo male with PMHx HTN, HLD, CAD s/p recent PCI to RCA on 01/06/22 who comes to ED c/o bilateral chest wall pain. 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 He also noted a little bit of a headache and some fatigue. He had no nausea no vomiting feeling palpitations no significant shortness of breath. He noted the pain was different than the pain he had for his myocardial infarction but was concerned about having chest pain came to ED for further care. Compliant with his medications. He is about to start cardiac rehab this Saturday CT head with no acute findings, chest radiograph with no acute findings. Labs with WBC 3.7, Hb 15.1, platelets 193, INR 1.2, NT proBNP 141, high- sensitivity troponin is 7 and repeat is 6, magnesium 1.9 K4.1, NA 141, CR 1.1, LFTs within normal laboratory limits Past Medical History Past Medical History CAD, HTN, MT, Hyperlipidemia, Other (asymptomatic SB) Cardiovascular: HTN GI: GERD Past Surgical History Past Surgical History: Other (PCI 12/2021) Family History Family History: Coronary Artery Disease (Father) Social History Smoke: 1 pack per day ALCOHOL: occassional Drugs: None Current Problem List Problem List Problems Medical Problems: (1) Chest pain Status: Acute Current Medications Current Medications Current Medications Fentanyl Citrate (Fentanyl 2ml Vial) 50 mcg 1X ONCE IVP Last administered on 02/05/22at 17:37; Start 02/05/22 at 17:30; Stop 02/05/22 at 17:31; Status DC Fentanyl Citrate (Fentanyl 2ml Vial) 50 mcg PRN Q3HRS PRN IVP PAIN; Start 02/05/22 at 18:30; Stop 02/06/22 at 18:29 Nitroglycerin (Nitrostat) 0.4 mg PRN Q5MIN PRN SL CHEST PAIN; Start 02/05/22 at 18:30; Stop 02/06/22 at 18:29 Prochlorperazine Edisylate (Compazine) 10 mg 1X ONCE IV Last administered on 02/05/22at 18:45; Start 02/05/22 at 18:45; Stop 02/05/22 at 18:46; Status DC Dexamethasone Sodium Phosphate (Decadron) 10 mg 1X ONCE IV Last administered on 02/05/22at 18:45; Start 02/05/22 at 18:45; Stop 02/05/22 at 18:46; Status DC Diphenhydramine HCl (Benadryl) 25 mg 1X ONCE IVP Last administered on at 18:45; Start 02/05/22 at 18:45; Stop 02/05/22 at 18:46; Status DC Lorazepam (Ativan Inj) 0.5 mg 1X ONCE IVP Last administered on 02/05/22at 19:15; Start 02/05/22 at 19:15; Stop 02/05/22 at 19:16; Status DC Active Scripts Active Aspirin Ec (Aspirin) 81 Mg Tablet.dr 81 Mg PO DAILYWBKFT Lisinopril 10 Mg Tablet 10 Mg PO DAILY Atorvastatin Calcium 40 Mg Tablet 40 Mg PO QHS Effient (Prasugrel Hcl) 10 Mg Tablet 10 Mg PO DAILYWBKFT Reported Nexium Capsule (Esomeprazole Magnesium) 20 Mg Capsule.dr 1 Cap PO DAILY Prozac (Fluoxetine Hcl) 40 Mg Capsule 1 Cap PO DAILY Allergies Allergies: Coded Allergies: No Known Drug Allergies (Unverified , 01/06/22) ROS General: No: Chills, Night Sweats, Fatigue, Malaise, Appetite, Other PSYCHOLOGICAL ROS: No: Anxiety, Behavioral Disorder, Concentration difficultie, Decreased libido, Depression, Disorientation, Hallucinations, Hostility, Irritablity, Memory difficulties, Mood Swings, Obsessive thoughts, Physical abuse, Sexual abuse, Sleep disturbances, Suicidal ideation, Other Eyes: No Blurry vision, No Decreased vision, No Double vision, No Dry eyes, No Excessive tearing, No Eye Pain, No Itchy Eyes, No Loss of vision, No Photophobia, No Scotomata, No Uses contacts, No Uses glasses, No Other HEENT: No: Heacaches, Visual Changes, Hearing change, Nasal congestion, Nasal discharge, Oral lesions, Sinus pain, Sore Throat, Epistaxis, Sneezing, Snoring, Tinnitus, Vertigo, Vocal changes, Other ALLERGY AND IMMUNOLOGY: No: Hives, Insect Bite Sensitivity, Itchy/Watery Eyes, Nasal Congestion, Post Nasal Drip, Seasonal Allergies, Other Hematological and Lymphatic: No: Bleeding Problems, Blood Clots, Blood Transfusions, Brusing, Night Sweats, Pallor, Swollen Lymph Nodes, Other ENDOCRINE: No: Breast Changes, Galactorrhea, Hair Pattern Changes, Hot Flashes, Malaise/lethargy, Mood Swings, Palpitations, Polydipsia/polyuria, Skin Changes, Temperature Intolerance, Unexpected Weight Changes, Other Breast: No New/Changing Breast Lumps, No Nipple changes, No Nipple discharge, No Other Respiratory: No: Cough, Hemoptysis, Orthopnea, Pleuritic Pain, Shortness of breath, SOB with excertion, Sputum Changes, Stridor, Tachypnea, Wheezing, Other Cardiovascular: yes Chest Pain; No Palpitations, No Orthopnea, No Paroxysmal Noc. Dyspnea, No Edema, No Lt Headedness, No Other Gastrointestinal: No Nausea, No Vomiting, No Abdominal Pain, No Diarrhea, No Constipation, No Melena, No Hematochezia, No Other Genitourinary: No Dysuria, No Frequency, No Incontinence, No Hematuria, No Retention, No Discharge, No Urgency, No Pain, No Flank Pain, No Other, No , No , No , No , No , No , No Musculoskeletal: No Gait Disturbance, No Joint Pain, No Joint Stiffness, No Joint Swelling, No Muscle Pain, No Muscular Weakness, No Pain In:, No Swelling In:, No Other Neurological: No Behavorial Changes, No Bowel/Bladder ControlChng, No Confusion, No Dizziness, No Gait Disturbance, No Headaches, No Impaired Coord/balance, No Memory Loss, No Numbness/Tingling, No Seizures, No Speech Problems, No Tremors, No Visual Changes, No Weakness, No Other Skin: No Dry Skin, No Eczema, No Hair Changes, No Lumps, No Mole Changes, No Mottling, No Nail Changes, No Pruritus, No Rash, No Skin Lesion Changes, No Other, No Acne Physical Exam General: Alert, Oriented X3, Cooperative, mild distress HEENT: Atraumatic, PERRLA, EOMI, Mucous membr. moist/pink Lungs: Clear to auscultation, Normal air movement Heart: S1S2, RRR, no thrills, no rubs, no gallops, no murmurs Abdomen: Normal bowel sounds, Soft, No tenderness, No hepatosplenomegaly, No masses Rectal Exam: not examined Extremities: No clubbing, No cyanosis, No edema, Normal pulses, No tenderness/swelling Skin: No rashes, No breakdown, No significant lesion Neuro: Normal gait, Normal speech, Strength at 5/5 X4 ext, Normal tone, Sens ation intact, Cranial nerves 3-12 NL, Reflexes 2+ Psych/Mental Status: Mental status NL, Mood NL Vitals Vitals Vital Signs Date Time Temp Pulse Resp B/P (MAP) Pulse Ox O2 Delivery O2 Flow Rate FiO2 02/05/22 19:38 60 18 137/65 (89) 98 02/05/22 17:25 Room Air Labs Labs Laboratory Tests Test 02/05/22 17:20 02/05/22 21:00 02/05/22 23:30 White Blood Count 3.7 x10^3/uL (4.0-11.0) Red Blood Count 4.72 x10^6/uL (4.30-5.70) Hemoglobin 15.1 g/dL (13.0-17.5) Hematocrit 43.5 % (39.0-53.0) Mean Corpuscular Volume 92 fL (79-100) Mean Corpuscular Hemoglobin 32 pg (25-35) Mean Corpuscular Hemoglobin Concent 35 g/dL (31-37) Red Cell Distribution Width 12.6 % (11.5-14.5) Platelet Count 193 x10^3/uL (140-400) Neutrophils (%) (Auto) 77 % (31-73) Lymphocytes (%) (Auto) 8 % (24-48) Monocytes (%) (Auto) 13 % (0-9) Eosinophils (%) (Auto) 1 % (0-3) Basophils (%) (Auto) 1 % (0-3) Neutrophils # (Auto) 2.9 x10^3/uL (1.8-7.7) Lymphocytes # (Auto) 0.3 x10^3/uL (1.0-4.8) Monocytes # (Auto) 0.5 x10^3/uL (0.0-1.1) Eosinophils # (Auto) 0.0 x10^3/uL (0.0-0.7) Basophils # (Auto) 0.0 x10^3/uL (0.0-0.2) Segmented Neutrophils % 81 % (35-66) Band Neutrophils % 6 % (0-9) Lymphocytes % 5 % (24-48) Monocytes % 7 % (0-10) Eosinophils % 1 % (0-5) Platelet Estimate Adequate (ADEQUATE) Prothrombin Time 14.6 SEC (11.7-14.0) Prothromb Time International Ratio 1.2 (0.8-1.1) Sodium Level 141 mmol/L (136-145) Potassium Level 4.1 mmol/L (3.5-5.1) Chloride Level 104 mmol/L (98-107) Carbon Dioxide Level 23 mmol/L (21-32) Anion Gap 14 (6-14) Blood Urea Nitrogen 9 mg/dL (8-26) Creatinine 1.1 mg/dL (0.7-1.3) Estimated GFR (Cockcroft-Gault) 74.1 BUN/Creatinine Ratio 8 (6-20) Glucose Level 97 mg/dL (70-99) Calcium Level 9.1 mg/dL (8.5-10.1) Magnesium Level 1.9 mg/dL (1.8-2.4) Total Bilirubin 0.7 mg/dL (0.2-1.0) Aspartate Amino Transf (AST/SGOT) 27 U/L (15-37) Alanine Aminotransferase (ALT/SGPT) 49 U/L (16-63) Alkaline Phosphatase 87 U/L (46-116) Troponin I High Sensitivity 7 ng/L (4-75) 6 ng/L (4-75) 6 ng/L (4-75) OY-Ebx-Q-Type Natriuretic Peptide 141 pg/mL (0-124) Total Protein 7.2 g/dL (6.4-8.2) Albumin 4.3 g/dL (3.4-5.0) Albumin/Globulin Ratio 1.5 (1.0-1.7) Laboratory Tests Test 02/05/22 17:20 02/05/22 21:00 02/05/22 23:30 White Blood Count 3.7 x10^3/uL (4.0-11.0) Red Blood Count 4.72 x10^6/uL (4.30-5.70) Hemoglobin 15.1 g/dL (13.0-17.5) Hematocrit 43.5 % (39.0-53.0) Mean Corpuscular Volume 92 fL (79-100) Mean Corpuscular Hemoglobin 32 pg (25-35) Mean Corpuscular Hemoglobin Concent 35 g/dL (31-37) Red Cell Distribution Width 12.6 % (11.5-14.5) Platelet Count 193 x10^3/uL (140-400) Neutrophils (%) (Auto) 77 % (31-73) Lymphocytes (%) (Auto) 8 % (24-48) Monocytes (%) (Auto) 13 % (0-9) Eosinophils (%) (Auto) 1 % (0-3) Basophils (%) (Auto) 1 % (0-3) Neutrophils # (Auto) 2.9 x10^3/uL (1.8-7.7) Lymphocytes # (Auto) 0.3 x10^3/uL (1.0-4.8) Monocytes # (Auto) 0.5 x10^3/uL (0.0-1.1) Eosinophils # (Auto) 0.0 x10^3/uL (0.0-0.7) Basophils # (Auto) 0.0 x10^3/uL (0.0-0.2) Segmented Neutrophils % 81 % (35-66) Band Neutrophils % 6 % (0-9) Lymphocytes % 5 % (24-48) Monocytes % 7 % (0-10) Eosinophils % 1 % (0-5) Platelet Estimate Adequate (ADEQUATE) Prothrombin Time 14.6 SEC (11.7-14.0) Prothromb Time International Ratio 1.2 (0.8-1.1) Sodium Level 141 mmol/L (136-145) Potassium Level 4.1 mmol/L (3.5-5.1) Chloride Level 104 mmol/L (98-107) Carbon Dioxide Level 23 mmol/L (21-32) Anion Gap 14 (6-14) Blood Urea Nitrogen 9 mg/dL (8-26) Creatinine 1.1 mg/dL (0.7-1.3) Estimated GFR (Cockcroft-Gault) 74.1 BUN/Creatinine Ratio 8 (6-20) Glucose Level 97 mg/dL (70-99) Calcium Level 9.1 mg/dL (8.5-10.1) Magnesium Level 1.9 mg/dL (1.8-2.4) Total Bilirubin 0.7 mg/dL (0.2-1.0) Aspartate Amino Transf (AST/SGOT) 27 U/L (15-37) Alanine Aminotransferase (ALT/SGPT) 49 U/L (16-63) Alkaline Phosphatase 87 U/L (46-116) Troponin I High Sensitivity 7 ng/L (4-75) 6 ng/L (4-75) 6 ng/L (4-75) PQ-Boo-T-Type Natriuretic Peptide 141 pg/mL (0-124) Total Protein 7.2 g/dL (6.4-8.2) Albumin 4.3 g/dL (3.4-5.0) Albumin/Globulin Ratio 1.5 (1.0-1.7) Images Images CT HEAD WO CONTRAST Exam: CT head INDICATION: Worst headache of life TECHNIQUE: Sequential axial images through the head were obtained without the administration of IV contrast. Exposure: One or more of the following in the visualized dose reduction techniques were utilized for this examination: 1. Automated exposure control 2. Adjustment of the MA and/or KV according to patient size 3. Use of iterative of reconstructive technique Comparisons: None FINDINGS: No focal parenchymal lesion or hemorrhage is identified. There is no midline shift or sulcal effacement. No acute vascular territory infarction is identified. Sarmiento-white distinction is preserved. The ventricular system is within normal limits without compression hydrocephalus. The basal cisterns are well maintained. The visualized portions of the paranasal sinuses and mastoid air cells are well- pneumatized. No acute fractures. IMPRESSION: No acute intracranial abnormality. PORTABLE CHEST 1V Exam: Chest one view INDICATION: Chest pain, chest pain TECHNIQUE: Frontal view of the chest Comparisons: None FINDINGS: The cardiomediastinal silhouette and pulmonary vessels are within normal limits. The lung and pleural spaces are clear. IMPRESSION: No acute cardiopulmonary process. VTE Prophylaxis Ordered VTE Prophylaxis Devices: Yes VTE Pharmacological Prophylaxi: No Assessment/Plan Assessment/Plan Headache - likely tension PEÑA, no neurologic deficits Chest pain - likely costochondritis due to over-exertion CAD s/p PCI/BO to RCA on 01/06/2022 - compliant with meds, will add NTG HTN - stable on meds HLD - on statin Smoker - counseled on tobacco cessation FEN - cardiac diet PPX - ambulatory FULL CODE Dispo - observation chest pain Justifications for Admission Other Justification STEMI LENORE DUARTE MD February 06, 2022 07:43
--- NOTE | 2022-02-06 07:48 | RAD ---
Exam: CT head INDICATION: Worst headache of life TECHNIQUE: Sequential axial images through the head were obtained without the administration of IV co ntrast. Exposure: One or more of the following in the visualized dose reduction techniques were utilized for this examination: 1. Automated exposure control 2. Adjustment of the MA and/or KV according to patient size 3. Use of iterative of reconstructive technique Comparisons: None FINDINGS: No focal parenchymal lesion or hemorrhage is identified. There is no midline shift or sulcal effaceme nt. No acute vascular territory infarction is identified. Sarmiento-white distinction is preserved. The ventricular system is within normal limits without compression hydrocephalus. The basal cisterns are well maintained. The visualized portions of the paranasal sinuses and mastoid air cells are well-pneumatized. No acute fractures. IMPRESSION: No acute intracranial abnormality. Electronically signed by: Amos Turner MD (02/05/2022 6:05 PM) ALEJANDRO
--- NOTE | 2022-02-06 07:48 | RAD ---
Exam: Chest one view INDICATION: Chest pain, chest pain TECHNIQUE: Frontal view of the chest Comparisons: None FINDINGS: The cardiomediastinal silhouette and pulmonary vessels are within normal limits. The lung and pleural spaces are clear. IMPRESSION: No acute cardiopulmonary process. Electronically signed by: Amos Turner MD (02/05/2022 5:54 PM) ALEJANDRO
--- NOTE | 2022-02-06 07:49 | EKG ---
[facility] [address] [place] [address] Test Date: 2022-02-05 Test Time: 17:14:21 Pat Name: AFSHAN CASH Department: Room: 2 Gender: M Outcome Analyst: : 1980 Requested By: ADEEL BRIZUELA Order Number: [id number] Reading MD: Shawn Maxwell MD Measurements Intervals [place] Rate: 87 P: 34 RI: 168 QRS: 2 QRSD: 106 T: 19 QT: 348 QTc: 419 Interpretive Statements SINUS RHYTHM Electronically Signed On 02-06-2022 11:19:04 CDT by Shawn Maxwell MD
[2022-02-06] MEDS ORDERED: PRASUGREL 10 MG TABLET. PO SCH (08:00)
[2022-02-06] MEDS ORDERED: ASPIRIN ENTERIC COATED 81 MG TABLET.DR. PO SCH (08:00)
--- NOTE | 2022-02-06 08:43 | PDOC2 ---
AVILA FRAIRE PRODUCT TECHNOLOGY SCIENTIST 02/06/22 0843: CARDIAC CONSULT DATE OF CONSULT Date of Consult DATE: 02/06/22 TIME: 08:20 REASON FOR CONSULT Reason for Consult: Chest pain REFERRING PHYSICIAN Referring Physician: John SOURCE Source: Chart review, Patient HISTORY OF PRESENT ILLNESS HISTORY OF PRESENT ILLNESS This is a pleasant 41 yo male admitted for complains of chest pain. 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 He came down from and felt tired and a little lightheaded and PEÑA but no significant SOA. No visual or auditory changes, no vertigo. No palpitations, vomiting. His discomfort is different from prior to when he had a stent to his heart about a month ago. No recent falls or injury. Otherwise he is able to tolerate his regular activities. He called his PCP and went over there and told him to come to ED to further get checked out. He is compliant with his medications. He is about to start cardiac rehab this Saturday. Denies heartburn, no recent falls or injury. PAST MEDICAL HISTORY Cardiovascular: CAD, HTN, NM, Hyperlipidemia, Other (asymptomatic SB) PAST SURGICAL HISTORY Past Surgical History: Other (PCI) FAMILY HISTORY Family History noncontributory to CV SOCIAL HISTORY Smoke: Quit (a month ago) ALCOHOL: occassional Drugs: None Lives: with Family CURRENT MEDICATIONS CURRENT MEDICATIONS Current Medications Medications (Trade) Dose Ordered Sig/James Route PRN Reason Start Time Stop Time Status Last Admin Dose Admin Fentanyl Citrate (Fentanyl 2ml Vial) 50 mcg 1X ONCE IVP 02/05/22 17:30 02/05/22 17:31 DC 02/05/22 17:37 Prochlorperazine Edisylate (Compazine) 10 mg 1X ONCE IV 02/05/22 18:45 02/05/22 18:46 DC 02/05/22 18:45 Dexamethasone Sodium Phosphate (Decadron) 10 mg 1X ONCE IV 02/05/22 18:45 02/05/22 18:46 DC 02/05/22 18:45 Diphenhydramine HCl (Benadryl) 25 mg 1X ONCE IVP 02/05/22 18:45 02/05/22 18:46 DC 02/05/22 18:45 Lorazepam (Ativan Inj) 0.5 mg 1X ONCE IVP 02/05/22 19:15 02/05/22 19:16 DC 02/05/22 19:15 ALLERGIES ALLERGIES: Coded Allergies: No Known Drug Allergies (Unverified , 01/06/22) ROS Review of System 14 point ROS evaluated with pertinent positives noted per HPI PHYSICAL EXAM General: Alert, Oriented X3, Cooperative, No acute distress HEENT: Atraumatic, Mucous membr. moist/pink Lungs: Clear to auscultation, Normal air movement Heart: Regular rate (SR), Normal S1, Normal S2, No murmurs Abdomen: Soft, No tenderness Extremities: No cyanosis, No edema Skin: No breakdown, No significant lesion Neuro: Normal speech, Sensation intact Psych/Mental Status: Mental status NL, Mood NL MUSCULOSKELETAL: Full range of motion without pain VITALS/I&O VITALS/I&O: Vital Signs Date Time Temp Pulse Resp B/P (MAP) Pulse Ox O2 Delivery O2 Flow Rate FiO2 02/06/22 07:00 98.4 73 18 136/74 (94) 93 Room Air 98.4 LABS Lab: Laboratory Tests Test 02/05/22 17:20 02/05/22 21:00 02/05/22 23:30 White Blood Count 3.7 x10^3/uL (4.0-11.0) L Red Blood Count 4.72 x10^6/uL (4.30-5.70) Hemoglobin 15.1 g/dL (13.0-17.5) Hematocrit 43.5 % (39.0-53.0) Mean Corpuscular Volume 92 fL (79-100) Mean Corpuscular Hemoglobin 32 pg (25-35) Mean Corpuscular Hemoglobin Concent 35 g/dL (31-37) Red Cell Distribution Width 12.6 % (11.5-14.5) Platelet Count 193 x10^3/uL (140-400) Neutrophils (%) (Auto) 77 % (31-73) H Lymphocytes (%) (Auto) 8 % (24-48) L Monocytes (%) (Auto) 13 % (0-9) H Eosinophils (%) (Auto) 1 % (0-3) Basophils (%) (Auto) 1 % (0-3) Neutrophils # (Auto) 2.9 x10^3/uL (1.8-7.7) Lymphocytes # (Auto) 0.3 x10^3/uL (1.0-4.8) L Monocytes # (Auto) 0.5 x10^3/uL (0.0-1.1) Eosinophils # (Auto) 0.0 x10^3/uL (0.0-0.7) Basophils # (Auto) 0.0 x10^3/uL (0.0-0.2) Segmented Neutrophils % 81 % (35-66) H Band Neutrophils % 6 % (0-9) Lymphocytes % 5 % (24-48) L Monocytes % 7 % (0-10) Eosinophils % 1 % (0-5) Platelet Estimate Adequate (ADEQUATE) Prothrombin Time 14.6 SEC (11.7-14.0) H Prothrombin Time INR 1.2 (0.8-1.1) H Sodium Level 141 mmol/L (136-145) Potassium Level 4.1 mmol/L (3.5-5.1) Chloride Level 104 mmol/L (98-107) Carbon Dioxide Level 23 mmol/L (21-32) Anion Gap 14 (6-14) Blood Urea Nitrogen 9 mg/dL (8-26) Creatinine 1.1 mg/dL (0.7-1.3) Estimated GFR (Cockcroft-Gault) 74.1 BUN/Creatinine Ratio 8 (6-20) Glucose Level 97 mg/dL (70-99) Calcium Level 9.1 mg/dL (8.5-10.1) Magnesium Level 1.9 mg/dL (1.8-2.4) Total Bilirubin 0.7 mg/dL (0.2-1.0) Aspartate Amino Transferase (AST) 27 U/L (15-37) Alanine Aminotransferase (ALT) 49 U/L (16-63) Alkaline Phosphatase 87 U/L (46-116) Troponin I High Sensitivity 7 ng/L (4-75) 6 ng/L (4-75) 6 ng/L (4-75) IO-Rve-H-Type Natriuretic Peptide 141 pg/mL (0-124) H Total Protein 7.2 g/dL (6.4-8.2) Albumin 4.3 g/dL (3.4-5.0) Albumin/Globulin Ratio 1.5 (1.0-1.7) Laboratory Tests 02/05/22 17:20 Laboratory Tests 02/05/22 17:20 ASSESSMENT/PLAN ASSESSMENT/PLAN 1. Atypical CP: noncardiac, suspect MSK 2. CAD: STEMI with PCI/BO to RCA a month ago 3. Headache: possibly tension PEÑA 4. HLP 5. HTN: controlled Recommendations Follow up with Dr. Alcazar on April 13 2:30 Continue secondary prevention measures. ASA/effient Cardiac rehab to start this week No further testing JOSHUA ALCAZAR MD 02/07/22 1143: CARDIAC CONSULT ASSESSMENT/PLAN ASSESSMENT/PLAN Late entry for 02/06/22 The patient was seen and interviewed as well as examined at the bedside. The chart was reviewed. The case was discussed. Agree with the plan of care. AVILA FRAIRE APRN February 06, 2022 08:43 JOSHUA ALCAZAR MD February 07, 2022 11:43
[2022-02-06] MEDS ORDERED: LISINOPRIL 10 MG TABLET PO SCH (09:00)
[2022-02-06] MEDS ORDERED: FLUoxetine HCL 20 MG CAPSULE PO SCH (09:00)
[2022-02-06] MEDS ORDERED: NITR0.4T22 SL (09:08)
--- NOTE | 2022-02-06 10:53 | NUR ---
discharge instructions reviewed, verbalized understanding. pt discharged home with self care, ambulated off unit with spouse and had all belongings.
[2022-02-06 11:00] VITALS: BP 134/70
--- NOTE | 2022-02-06 15:42 | PDOC3 ---
Discharge Summary Visit Information Date of Admission: February 05, 2022 Date of Discharge: February 06, 2022 Admitting Diagnosis: Chest pain Final Diagnosis Problems Medical Problems: (1) Chest pain Status: Acute Brief Hospital Course Allergies Allergies Coded Allergies Type Severity Reaction Last Updated Verified No Known Drug Allergies 01/06/22 No Vital Signs Vital Signs Date Time Temp Pulse Resp B/P (MAP) Pulse Ox O2 Delivery O2 Flow Rate FiO2 02/06/22 11:00 98.5 66 18 134/70 (91) 95 Room Air 98.5 Lab Results Laboratory Tests Test 02/05/22 17:20 02/05/22 21:00 02/05/22 23:30 White Blood Count 3.7 x10^3/uL (4.0-11.0) Red Blood Count 4.72 x10^6/uL (4.30-5.70) Hemoglobin 15.1 g/dL (13.0-17.5) Hematocrit 43.5 % (39.0-53.0) Mean Corpuscular Volume 92 fL (79-100) Mean Corpuscular Hemoglobin 32 pg (25-35) Mean Corpuscular Hemoglobin Concent 35 g/dL (31-37) Red Cell Distribution Width 12.6 % (11.5-14.5) Platelet Count 193 x10^3/uL (140-400) Neutrophils (%) (Auto) 77 % (31-73) Lymphocytes (%) (Auto) 8 % (24-48) Monocytes (%) (Auto) 13 % (0-9) Eosinophils (%) (Auto) 1 % (0-3) Basophils (%) (Auto) 1 % (0-3) Neutrophils # (Auto) 2.9 x10^3/uL (1.8-7.7) Lymphocytes # (Auto) 0.3 x10^3/uL (1.0-4.8) Monocytes # (Auto) 0.5 x10^3/uL (0.0-1.1) Eosinophils # (Auto) 0.0 x10^3/uL (0.0-0.7) Basophils # (Auto) 0.0 x10^3/uL (0.0-0.2) Segmented Neutrophils % 81 % (35-66) Band Neutrophils % 6 % (0-9) Lymphocytes % 5 % (24-48) Monocytes % 7 % (0-10) Eosinophils % 1 % (0-5) Platelet Estimate Adequate (ADEQUATE) Prothrombin Time 14.6 SEC (11.7-14.0) Prothromb Time International Ratio 1.2 (0.8-1.1) Sodium Level 141 mmol/L (136-145) Potassium Level 4.1 mmol/L (3.5-5.1) Chloride Level 104 mmol/L (98-107) Carbon Dioxide Level 23 mmol/L (21-32) Anion Gap 14 (6-14) Blood Urea Nitrogen 9 mg/dL (8-26) Creatinine 1.1 mg/dL (0.7-1.3) Estimated GFR (Cockcroft-Gault) 74.1 BUN/Creatinine Ratio 8 (6-20) Glucose Level 97 mg/dL (70-99) Calcium Level 9.1 mg/dL (8.5-10.1) Magnesium Level 1.9 mg/dL (1.8-2.4) Total Bilirubin 0.7 mg/dL (0.2-1.0) Aspartate Amino Transf (AST/SGOT) 27 U/L (15-37) Alanine Aminotransferase (ALT/SGPT) 49 U/L (16-63) Alkaline Phosphatase 87 U/L (46-116) Troponin I High Sensitivity 7 ng/L (4-75) 6 ng/L (4-75) 6 ng/L (4-75) DU-Ewi-Z-Type Natriuretic Peptide 141 pg/mL (0-124) Total Protein 7.2 g/dL (6.4-8.2) Albumin 4.3 g/dL (3.4-5.0) Albumin/Globulin Ratio 1.5 (1.0-1.7) Laboratory Tests Test 02/05/22 17:20 02/05/22 21:00 02/05/22 23:30 White Blood Count 3.7 x10^3/uL (4.0-11.0) Red Blood Count 4.72 x10^6/uL (4.30-5.70) Hemoglobin 15.1 g/dL (13.0-17.5) Hematocrit 43.5 % (39.0-53.0) Mean Corpuscular Volume 92 fL (79-100) Mean Corpuscular Hemoglobin 32 pg (25-35) Mean Corpuscular Hemoglobin Concent 35 g/dL (31-37) Red Cell Distribution Width 12.6 % (11.5-14.5) Platelet Count 193 x10^3/uL (140-400) Neutrophils (%) (Auto) 77 % (31-73) Lymphocytes (%) (Auto) 8 % (24-48) Monocytes (%) (Auto) 13 % (0-9) Eosinophils (%) (Auto) 1 % (0-3) Basophils (%) (Auto) 1 % (0-3) Neutrophils # (Auto) 2.9 x10^3/uL (1.8-7.7) Lymphocytes # (Auto) 0.3 x10^3/uL (1.0-4.8) Monocytes # (Auto) 0.5 x10^3/uL (0.0-1.1) Eosinophils # (Auto) 0.0 x10^3/uL (0.0-0.7) Basophils # (Auto) 0.0 x10^3/uL (0.0-0.2) Segmented Neutrophils % 81 % (35-66) Band Neutrophils % 6 % (0-9) Lymphocytes % 5 % (24-48) Monocytes % 7 % (0-10) Eosinophils % 1 % (0-5) Platelet Estimate Adequate (ADEQUATE) Prothrombin Time 14.6 SEC (11.7-14.0) Prothromb Time International Ratio 1.2 (0.8-1.1) Sodium Level 141 mmol/L (136-145) Potassium Level 4.1 mmol/L (3.5-5.1) Chloride Level 104 mmol/L (98-107) Carbon Dioxide Level 23 mmol/L (21-32) Anion Gap 14 (6-14) Blood Urea Nitrogen 9 mg/dL (8-26) Creatinine 1.1 mg/dL (0.7-1.3) Estimated GFR (Cockcroft-Gault) 74.1 BUN/Creatinine Ratio 8 (6-20) Glucose Level 97 mg/dL (70-99) Calcium Level 9.1 mg/dL (8.5-10.1) Magnesium Level 1.9 mg/dL (1.8-2.4) Total Bilirubin 0.7 mg/dL (0.2-1.0) Aspartate Amino Transf (AST/SGOT) 27 U/L (15-37) Alanine Aminotransferase (ALT/SGPT) 49 U/L (16-63) Alkaline Phosphatase 87 U/L (46-116) Troponin I High Sensitivity 7 ng/L (4-75) 6 ng/L (4-75) 6 ng/L (4-75) RI-Ojf-N-Type Natriuretic Peptide 141 pg/mL (0-124) Total Protein 7.2 g/dL (6.4-8.2) Albumin 4.3 g/dL (3.4-5.0) Albumin/Globulin Ratio 1.5 (1.0-1.7) Brief Hospital Course Mr Bonner is a 41yo male with PMHx HTN, HLD, CAD s/p recent PCI to RCA on 01/06/22 who comes to ED c/o bilateral chest wall pain. 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 He also noted a little bit of a headache and some fatigue. He had no nausea no vomiting feeling palpitations no significant shortness of breath. He noted the pain was different than the pain he had for his myocardial infarction but was concerned about having chest pain came to ED for further care. Compliant with his medications. He is about to start cardiac rehab this Saturday CT head with no acute findings, chest radiograph with no acute findings. Labs with WBC 3.7, Hb 15.1, platelets 193, INR 1.2, NT proBNP 141, high- sensitivity troponin is 7 and repeat is 6, magnesium 1.9 K4.1, NA 141, CR 1.1, LFTs within normal laboratory limits Cardiology consulted No events on telemetry troponins trended negative. Pain is reproducible on examination and exercise from his testosterone, pain is better with Tylenol. He has prescription for nitroglycerin if he does have anginal pain. Counseled on smoking cessation cut back on alcohol. He is taking bvvl-vaq-gadplfk acid reflux medication as well. HEENT: Head normocephalic, atraumatic. NECK: Supple LUNGS: Clear to auscultation. HEART: RRR, S1, S2 present, pulses intact ABDOMEN: Soft, positive bowel sounds. EXTREMITIES: No cyanosis or edema. NEUROLOGIC: Normal speech, normal tone PSYCHIATRIC: Normal affect, normal mood. SKIN: No ulceration. Problem list: Headache - likely tension PEÑA, no neurologic deficits Chest pain - likely costochondritis due to over-exertion CAD s/p PCI/BO to RCA on 01/06/2022 - compliant with meds, will add NTG HTN - stable on meds HLD - on statin Smoker - counseled on tobacco cessation Greater than 135 minutes on new admission and discharge Discharge Information Condition at Discharge: Improved Follow Up: Weeks (1) Disposition/Orders: D/C to Home Scheduled Aspirin (Aspirin Ec) 81 Mg Tablet.dr, 81 MG PO DAILYWBKFT for DE, #60 Ref 5 Prescribed by: NATALIE POWELL MD on 01/08/221145 Last Action: Continued on 02/06/22743 by LENORE DUARTE MD Atorvastatin Calcium (Atorvastatin Calcium) 40 Mg Tablet, 40 MG PO QHS for HLD, #60 Ref 5 Prescribed by: NATALIE POWELL MD on 01/08/221145 Last Action: Continued on 02/06/22743 by LENORE DUARTE MD Esomeprazole Magnesium (Nexium Capsule) 20 Mg Capsule.dr, 1 CAP PO DAILY for indigestion, #30 Ref 2 (Reported) Entered as Reported by: JACQUE MATTHEW RN on 02/05/222033 Last Action: Converted on 02/06/22743 by LENORE DUARTE MD Fluoxetine Hcl (Prozac) 40 Mg Capsule, 1 CAP PO DAILY for anxienty, #30 Ref 3 (Reported) Entered as Reported by: JACQUE MATTHEW RN on 02/05/222033 Last Action: Converted on 02/06/22743 by LENORE DUARTE MD Lisinopril (Lisinopril) 10 Mg Tablet, 10 MG PO DAILY for HTN, #60 Ref 5 Prescribed by: NATALIE POWELL MD on 01/08/221145 Last Action: Continued on 02/06/22743 by LENORE DUARTE MD Prasugrel Hcl (Effient) 10 Mg Tablet, 10 MG PO DAILYWBKFT for DE, #60 Ref 5 Prescribed by: NATALIE POWELL MD on 01/08/221145 Last Action: Continued on 02/06/22743 by LENORE DUARTE MD Scheduled PRN Nitroglycerin (NITROGLYCERIN SubLingual) 0.4 Mg Tab.subl, 0.4 MG SL PRN Q5MIN PRN for CHEST PAIN for 30 Days, #9 Ref 5 Prescribed by: LENORE DUARTE MD on 02/06/22 0908 Justicifation of Admission Dx: Justifications for Admission: Justification of Admission Dx: N/A LENORE DUARTE MD February 06, 2022 15:42
[2022-02-06] MEDS ORDERED: ATORVASTATIN CALCIUM 40 MG TABLET. PO SCH (21:00)
[2022-02-07] MEDS ORDERED: PANTOPRAZOLE 40 MG TABLET.DR. PO SCH (07:30)
== END 2022-02-06 11:00 | disposition home or self-care (01) | DRG 206 ==
LOC: ER 17:09 → 6 SOUTH 19:34
PROVIDERS: ADMIT Internal Medicine; ATTEND Internal Medicine
DX: M94.0 Chondrocostal junction syndrome [Tietze] (principal); G44.209 Tension-type headache, unspecified, not intractable; I25.10 Atherosclerotic heart disease of native coronary artery without angina pectoris; E78.5 Hyperlipidemia, unspecified; F17.210 Nicotine dependence, cigarettes, uncomplicated; I10 Essential (primary) hypertension; K21.9 Gastro-esophageal reflux disease without esophagitis; M62.838 Other muscle spasm; Z95.5 Presence of coronary angioplasty implant and graft; Z71.6 Tobacco abuse counseling; I25.2 Old myocardial infarction; Z79.02 Long term (current) use of antithrombotics/antiplatelets; Z82.49 Family history of ischemic heart disease and other diseases of the circulatory system; Z79.899 Other long term (current) drug therapy
CPT/HCPCS: 36415; 70450; 71045; 80053; 83735; 83880; 84484; 85007; 85025; 85610; 93005; 96374; 96375; J0780; J1100; J1200; J2060; J3010; 99285-25; G0378